=== PATIENT | female | born 1935 | race Caucasian/White ===

== ENCOUNTER → 2016-12-31 | Outpatient (CLI) | payer OTHER ==
[2016-08-31 16:04] VITALS: BP 113/55
[2016-12-31 08:26] LABS: BASOPHILS % (AUTO) 0.6 % (0.2-1.0); EOSINOPHILS # (AUTO) 0.1 x10^3/uL (0.0-0.2); EOSINOPHILS % (AUTO) 1.2 % (0.9-2.9); HEMATOCRIT 25.9 % (36.0-47.0); HEMOGLOBIN 8.1 g/dL (12.0-16.0); LYMPHOCYTES # (AUTO) 1.8 X10^3/uL (1.3-2.9); LYMPHOCYTES % (AUTO) 27.5 % (21.0-51.0); MEAN CORPUSCULAR HEMOGLOBIN 24.4 pg (27.0-34.0); MEAN CORPUSCULAR HGB CONC 31.4 g/dL (33.0-35.0); MEAN CORPUSCULAR VOLUME 77.7 fL (80.0-100.0); MEAN PLATELET VOLUME 7.9 fL (7.4-11.0); MONOCYTES # (AUTO) 0.5 x10^3/uL (0.3-0.8); NEUTROPHILS % (AUTO) 62.7 % (42.0-75.0); PLATELET COUNT 297 X10^3/uL (150.0-450.0); RED BLOOD COUNT 3.33 X10^6/uL (3.5-5.4); RED CELL DISTRIBUTION WIDTH 17.6 % (11.6-16.5); WHITE BLOOD COUNT 6.4 X10^3/uL (3.6-10.0)
[2016-12-31 08:39] LABS: ALANINE AMINOTRANSFERASE 17 Units/L (12-78); ALBUMIN 3.5 g/dL (3.4-5.0); ALKALINE PHOSPHATASE 77 Units/L (46-116); ASPARTATE AMINO TRANSFERASE 13 Units/L (15-37); BLOOD UREA NITROGEN 7 mg/dL (7-18); CALCIUM 8.4 mg/dL (8.5-10.1); CARBON DIOXIDE 26.2 mmol/L (21-32); CHLORIDE 105 mmol/L (98-107); CHOL/HDL RATIO 2.4 (0.0-5.0); CHOLESTEROL 106 mg/dL (0-200); GLUCOSE 92 mg/dL (65-99); HDL CHOLESTEROL 45 mg/dL (40-60); SODIUM 141 mmol/L (136-145); TOTAL PROTEIN 6.9 g/dL (6.4-8.2); TRIGLYCERIDES 57 mg/dL (0-150); eGFR BLACK RACES > 60 (>60); eGFR NON BLACK RACES > 60 (>60)
[2016-12-31 09:08] LABS: PLATELET MORPHOLOGY COMMENT NORMAL (NORMAL)
[2016-12-31 09:09] LABS: HYPOCHROMASIA SLIGHT
== END ==
LOC: LAB 07:55
PROVIDERS: ATTEND Obstetrics & Gynecology Obstetrics
DX: D50.0 Iron deficiency anemia secondary to blood loss (chronic) (principal); I10 Essential (primary) hypertension
CPT/HCPCS: 36415; 80053; 80061; 85025

== ENCOUNTER → 2017-01-11 | Outpatient (CLI) | payer OTHER ==
[2016-08-31 16:04] VITALS: BP 113/55
== END ==
LOC: LAB 08:41
PROVIDERS: ATTEND Obstetrics & Gynecology Obstetrics
DX: D50.0 Iron deficiency anemia secondary to blood loss (chronic) (principal); Z79.899 Other long term (current) drug therapy
CPT/HCPCS: 36415; 82607; 82728; 82746; 83540; 84466

== ENCOUNTER 2017-07-19 12:35 | Inpatient (IN) | payer OTHER ==
[2017-07-19 12:44] VITALS: BMI 23.8
--- NOTE | 2017-07-19 12:49 | DR.GENAD ---
HPI - PCP Primary Care Physician: Dr Martell - Complaint/Symptoms Chief Complaint Doctors Comments: Patient presents with complaint of SOB but denies a history of cardiopulmonary disease. She denies fever, vomiting or diarrhea. She has an appointment with her primary care today at 1500 but her sinus was bothering her so she came to the ED for evaluation. Her vital signs PMH - PMH Past Medical History: Anemia, Dyslipidemia, Hypertension Past Surgical History: Yes Surgical History: Appendectomy, Hysterectomy, Ortho Surgery - Family History Family Medical History: Cancer, Hypertension - Social History Do you use any recreational Drugs:: No ROS - Review of Systems Constitutional: Weakness Eyes: No Symptoms Reported, Eye Pain ENTM: No Symptoms Reported Respiratoy: No Symptoms Reported Cardiovascular: No Symptoms Reported Gastrointestinal/Abdominal: No Symptoms Reported, Other (?GI bleed) Genitourinary: No Symptoms Reported Neurological: No Symptoms Reported Musculoskeletal: No Symptoms Reported Integumentary: Other (pale) Hematologic/Lymphatic: No Symptoms Reported Endocrine: No Symptoms Reported Psychiatric: No Symptoms Reported All Other Systems: Reviewed and Negative PE - Vital Signs Vitals: Temperature 98.6 F Pulse Rate 86 Respiratory Rate 16 Blood Pressure [Left Arm] 156/63 Blood Pressure [Right Arm] 113/55 Blood Pressure 133/63 O2 Sat by Pulse Oximetry 100 - General Limitations: No Limitations General Appearance: Alert, In No Apparent Distress - Head Head Exam: Normal Inspection, Atraumatic - Eyes Eye exam: Normal Appearance, PERRL, EOMI - ENT ENT Exam: Normal Exam, Normal Oropharynx External Ear Exam: Normal External Inspection TM/Canal Exam: Bilateral Normal Nose Exam: Normal Nose Exam Mouth Exam: Normal Inspection Throat Exam: Normal Inspection - Neck Neck Exam: Normal Inspection, Full ROM - Chest Chest Inspection: Normal Inspection, Symmetric Chest Wall Rise - Respiratory Respiratory Exam: Normal Lung Sounds Bilat, Accessory Muscle Use Respiratory Exam: Bilateral Rhonchi - Cardiovascular Cardiovascular Exam: Regular Rate, Normal Rhythm - Abdominal Exam Abdominal Exam: Normal Inspection Abdominal Tenderness: negative: RUQ, RLQ, LUQ, LLQ, Epigastrium, Suprapubic, Diffuse, Mild, Moderate, Severe, Other - Extremities Extremities Exam: Normal Inspection, Full ROM - Back Back Exam: Normal Inspection, Full ROM - Neurologic Neurological Exam: Alert, Oriented X3, CN II-XII Intact - Psychiatric Psychiatric Exam: Normal Affect, Normal Mood - Skin Skin Exam: Warm, Dry, Intact Course - Consultation Called: 15:15 (Dr Martell agreed to admit for transfusion with consult) ROR - Labs Reviewed Result Diagrams: 07/19/17 13:13 07/19/17 13:13 Laboratory: WBC 8.9 X10^3/uL (3.6-10.0) 07/19/17 13:13 RBC 2.63 X10^6/uL (3.5-5.4) L 07/19/17 13:13 Hgb 4.7 g/dL (12.0-16.0) L* 07/19/17 13:13 Hct 16.1 % (36.0-47.0) L* 07/19/17 13:13 MCV 61.3 fL (80.0-100.0) L 07/19/17 13:13 MCH 17.8 pg (27.0-34.0) L 07/19/17 13:13 MCHC 29.0 g/dL (33.0-35.0) L 07/19/17 13:13 RDW 21.6 % (11.6-16.5) H 07/19/17 13:13 Plt Count 286 X10^3/uL (150.0-450.0) 07/19/17 13:13 Plt Count Comment Adequate (ADEQUATE) 07/19/17 13:13 MPV 8.7 fL (7.4-11.0) 07/19/17 13:13 Neut % 73.0 % (42.0-75.0) 07/19/17 13:13 Lymph % 17.8 % (21.0-51.0) L 07/19/17 13:13 [place] % 8.5 % (0.0-13.0) 07/19/17 13:13 Eos % 0.1 % (0.9-2.9) L 07/19/17 13:13 Baso % 0.6 % (0.2-1.0) 07/19/17 13:13 Neut # 6.5 x10^3/uL (2.2-4.8) H 07/19/17 13:13 Lymph # 1.6 X10^3/uL (1.3-2.9) 07/19/17 13:13 [place] # 0.8 x10^3/uL (0.3-0.8) 07/19/17 13:13 Eos # 0.0 x10^3/uL (0.0-0.2) 07/19/17 13:13 Baso # 0.1 X10^3/uL (0.0-0.1) 07/19/17 13:13 Absolute Nucleated RBC 1.0 /100WBC 07/19/17 13:13 Total Counted 100 07/19/17 13:13 Neutrophils % (Manual) 86 % (39-76) H 07/19/17 13:13 Lymphocytes % (Manual) 12 % (13-43) L 07/19/17 13:13 Monocytes % (Manual) 2 % (4-9) L 07/19/17 13:13 Plt Morphology Comment Normal (NORMAL) 07/19/17 13:13 RBC Morphology Abnormal (NORMAL) A 07/19/17 13:13 Hypochromasia 3+ A 07/19/17 13:13 Anisocytosis 1+ A 07/19/17 13:13 Microcytosis 2+ A 07/19/17 13:13 Sodium 135 mmol/L (136-145) L 07/19/17 13:13 Corrected Sodium TNP 07/19/17 13:13 Potassium 3.2 mmol/L (3.5-5.1) L 07/19/17 13:13 Chloride 100 mmol/L (98-107) 07/19/17 13:13 Carbon Dioxide 22.7 mmol/L (21-32) 07/19/17 13:13 BUN 11 mg/dL (7-18) 07/19/17 13:13 Creatinine 0.70 mg/dL (0.55-1.02) 07/19/17 13:13 Est GFR (MDRD) Af Amer > 60 (>60) 07/19/17 13:13 Est GFR (MDRD) Non-Af > 60 (>60) 07/19/17 13:13 Glucose 104 mg/dL (65-99) H 07/19/17 13:13 Calcium 8.6 mg/dL (8.5-10.1) 07/19/17 13:13 Corrected Calcium 9.2 mg/dL (8.5-10.1) 07/19/17 13:13 Total Bilirubin 0.60 mg/dL (0.2-1.0) 07/19/17 13:13 AST 12 Units/L (15-37) L 07/19/17 13:13 ALT 8 Units/L (12-78) L 07/19/17 13:13 Alkaline Phosphatase 72 Units/L (46-116) 07/19/17 13:13 C-Reactive Protein 13.20 mg/L (0-3.0) H 07/19/17 13:13 Total Protein 6.5 g/dL (6.4-8.2) 07/19/17 13:13 Albumin 3.2 g/dL (3.4-5.0) L 07/19/17 13:13 Globulin 3.3 g/dL (2.5-4.5) 07/19/17 13:13 Albumin/Globulin Ratio 1.0 Ratio (1.1-2.1) L 07/19/17 13:13 - XRAY XRAY Interpreted by: Radiologist (Chest: interstitial infiltrates in the bases with patchy infiltrate) - Diagnosis Discharge Problem: Anemia Qualifiers: Anemia type: unspecified type Qualified Code(s): D64.9 - Anemia, unspecified - Discharge Plan Condition: Stable - Follow ups/Referrals Follow ups/Referrals: IRINA MARTELL [Primary Care Provider] - 3 days - Instructions
[2017-07-19 13:23] LABS: BASOPHILS # (AUTO) 0.1 X10^3/uL (0.0-0.1); EOSINOPHILS % (AUTO) 0.1 % (0.9-2.9); MEAN PLATELET VOLUME 8.7 fL (7.4-11.0); NEUTROPHILS # (AUTO) 6.5 x10^3/uL (2.2-4.8)
[2017-07-19 13:38] LABS: ALANINE AMINOTRANSFERASE 8 Units/L (12-78); ALBUMIN 3.2 g/dL (3.4-5.0); ALKALINE PHOSPHATASE 72 Units/L (46-116); ASPARTATE AMINO TRANSFERASE 12 Units/L (15-37); BLOOD UREA NITROGEN 11 mg/dL (7-18); CALCIUM 8.6 mg/dL (8.5-10.1); CARBON DIOXIDE 22.7 mmol/L (21-32); CHLORIDE 100 mmol/L (98-107); COR CA(FOR HYPOALB) 9.2 mg/dL (8.5-10.1); SODIUM 135 mmol/L (136-145); TOTAL PROTEIN 6.5 g/dL (6.4-8.2); eGFR BLACK RACES > 60 (>60); eGFR NON BLACK RACES > 60 (>60)
[2017-07-19 13:57] LABS: BASOPHILS % (AUTO) 0.6 % (0.2-1.0); LYMPHOCYTES # (AUTO) 1.6 X10^3/uL (1.3-2.9); LYMPHOCYTES % (AUTO) 17.8 % (21.0-51.0); MEAN CORPUSCULAR HEMOGLOBIN 17.8 pg (27.0-34.0); MEAN CORPUSCULAR VOLUME 61.3 fL (80.0-100.0); MONOCYTES # (AUTO) 0.8 x10^3/uL (0.3-0.8); MONOCYTES % (AUTO) 8.5 % (0.0-13.0); PLATELET COUNT 286 X10^3/uL (150.0-450.0); RED BLOOD COUNT 2.63 X10^6/uL (3.5-5.4); RED CELL DISTRIBUTION WIDTH 21.6 % (11.6-16.5); WHITE BLOOD COUNT 8.9 X10^3/uL (3.6-10.0)
[2017-07-19 14:00] LABS: HEMOGLOBIN 4.7 g/dL (12.0-16.0)
--- NOTE | 2017-07-19 14:01 | RAD ---
HISTORY: Shortness of breath Study: Single-view of the chest Comparison: None Findings: The patient is rotated. The cardiac silhouette is unremarkable. Interstitial changes are seen withi n both lungs. Patchy infiltrate demonstrated within the lower lobes bilaterally. Hilar prominence is demonstrated bilaterally well and may be further evaluated on follow-up exam. The aortic knob is part ially calcified. There are questionable small bilateral pleural effusions. IMPRESSION: 1. Interstitial changes with patchy bibasilar infiltrate. Small bilateral pleural effusions cannot b e excluded. Reported By:
[2017-07-19 14:02] LABS: HEMATOCRIT 16.1 % (36.0-47.0)
[2017-07-19 14:09] LABS: PLATELET MORPHOLOGY COMMENT NORMAL (NORMAL)
[2017-07-19 14:10] LABS: ANISOCYTOSIS 1+; HYPOCHROMASIA 3+; MICROCYTOSIS 2+
[2017-07-19] MEDS ORDERED: K-LYTE EFFERVESCENT PO ONE (14:43)
[2017-07-19] MEDS ORDERED: NS 500 ML IV 500 ML IV ONE (15:26)
[2017-07-19] MEDS ORDERED: ZOFRAN INJ 4 MG VIAL IVP PRN (15:34)
[2017-07-19] MEDS ORDERED: NS 250 ML IV 250 ML IV ONE ×3 (16:27→21:44)
[2017-07-19] MEDS ORDERED: K-LYTE EFFERVESCENT ONE (16:27)
[2017-07-19] MEDS ORDERED: SALINE 3% 15 ML NEB TX ONE (18:04)
[2017-07-19] MEDS ORDERED: SALINE 3% 15 ML NEB TX NEB ONE (18:08)
[2017-07-19] MEDS: DUONEB 0.5 MG/3 MG NEB SCH (21:22)
[2017-07-20] MEDS: DUONEB 0.5 MG/3 MG NEB SCH ×6 (00:09→20:23)
[2017-07-20] MEDS ORDERED: NS 250 ML IV 250 ML IV ONE (01:37)
[2017-07-20] MEDS: NS 1000 ML 1,000 ML IV SCH ×4 (05:28→23:36)
[2017-07-20 07:06] LABS: BASOPHILS # (AUTO) 0.1 X10^3/uL (0.0-0.1); BASOPHILS % (AUTO) 0.6 % (0.2-1.0); EOSINOPHILS % (AUTO) 0.1 % (0.9-2.9); HEMATOCRIT 27.3 % (36.0-47.0); HEMOGLOBIN 8.5 g/dL (12.0-16.0); LYMPHOCYTES % (AUTO) 6.4 % (21.0-51.0); MEAN CORPUSCULAR HEMOGLOBIN 22.2 pg (27.0-34.0); MEAN CORPUSCULAR HGB CONC 31.2 g/dL (33.0-35.0); MEAN CORPUSCULAR VOLUME 71.2 fL (80.0-100.0); MEAN PLATELET VOLUME 9.1 fL (7.4-11.0); MONOCYTES # (AUTO) 1.1 x10^3/uL (0.3-0.8); MONOCYTES % (AUTO) 6.8 % (0.0-13.0); NEUTROPHILS # (AUTO) 13.3 x10^3/uL (2.2-4.8); NEUTROPHILS % (AUTO) 86.1 % (42.0-75.0); PLATELET COUNT 256 X10^3/uL (150.0-450.0); RED BLOOD COUNT 3.83 X10^6/uL (3.5-5.4); RED CELL DISTRIBUTION WIDTH 29.4 % (11.6-16.5); WHITE BLOOD COUNT 15.4 X10^3/uL (3.6-10.0)
[2017-07-20 07:17] LABS: ALANINE AMINOTRANSFERASE 9 Units/L (12-78); ALBUMIN 2.9 g/dL (3.4-5.0); ALKALINE PHOSPHATASE 71 Units/L (46-116); ASPARTATE AMINO TRANSFERASE 13 Units/L (15-37); BLOOD UREA NITROGEN 8 mg/dL (7-18); CALCIUM 8.2 mg/dL (8.5-10.1); CARBON DIOXIDE 20.1 mmol/L (21-32); CHLORIDE 101 mmol/L (98-107); COR CA(FOR HYPOALB) 9.1 mg/dL (8.5-10.1); COR NA(FOR HYPERGLY) 135 mmol/L (136-145); CREATININE 0.72 mg/dL (0.55-1.02); SODIUM 134 mmol/L (136-145); eGFR BLACK RACES > 60 (>60); eGFR NON BLACK RACES > 60 (>60)
[2017-07-20 07:32] LABS: ANISOCYTOSIS 3+; HYPOCHROMASIA 1+; PLATELET MORPHOLOGY COMMENT NORMAL (NORMAL)
[2017-07-20] MEDS ORDERED: PHARMACY CONSULT - DOSE _____ XX SCH (10:00)
[2017-07-20] MEDS ORDERED: DEXFERRUM or INFED 25 MG in NS 100 ML IV 100 ML IV NR (11:00)
[2017-07-20] MEDS ORDERED: DEXFERRUM or INFED 975 MG in NS 500 ML IV 500 ML IV NR (12:30)
--- NOTE | 2017-07-20 13:21 | CT ---
Examination: CT of the sinuses. Clinical history: Frontal headache. Technique: Multiple axial images were obtained to evaluate the sinuses. Coronal reformatted images we re obtained. Dose reduction techniques including automated exposure control (AEC) and adjustment of m A and kV were utilized. Comparison: None available. Findings: There is mild mucosal thickening seen associated with the ethmoid air cells bilaterally, with minor m ucosal thickening seen associated with the maxillary sinuses bilaterally and mild mucosal thickening seen associated with an atrophic left frontal sinus. The remainder of the paranasal sinuses are essen tially clear. The nasal septum is deviated to the right. The ostiomeatal units are patent bilaterally. Atherosclerotic calcifications are seen associated with the internal carotid arteries bilaterally and the vertebral arteries bilaterally. No additional bony or soft tissue abnormality is noted. Impression: 1. Inflammatory sinus disease, as described above. Reported By:
--- NOTE | 2017-07-20 13:24 | RAD ---
Chest, two views Indication: Shortness of breath Comparison: 07/19/2017 Findings: The heart is borderline enlarged. There is moderate pulmonary vascular congestion and incre asing bilateral interstitial opacities, most compatible with interstitial edema. Small bilateral pleu ral effusions have slightly increased since yesterday's exam. No pneumothorax is identified. No acute osseous abnormality seen. Impression: Cardiomegaly with moderate interstitial edema and increasing small bilateral effusions, collectively suggestive for congestive failure. Superimposed pneumonia is difficult to exclude and clinical correl ation is recommended. Reported By:
[2017-07-20] MEDS ORDERED: DIPRIVAN VIAL 20 ML ONE (14:06)
[2017-07-20] MEDS ORDERED: MIRALAX POWDER (255 GM BTL) PO NR (15:00)
[2017-07-20] MEDS ORDERED: LASIX ONE (15:22)
[2017-07-20] MEDS ORDERED: LEVAQUIN PREMIX IV 500 MG 500 MG/100 ML BAG IV SCH (16:00)
[2017-07-20] MEDS ORDERED: LASIX IVP NR (16:00)
[2017-07-20 18:04] LABS: HEMATOCRIT 29.6 % (36.0-47.0); HEMOGLOBIN 9.4 g/dL (12.0-16.0)
[2017-07-20] MEDS: PROTONIX INJ 40 MG VIAL IVP SCH (20:25)
[2017-07-21] MEDS: DUONEB 0.5 MG/3 MG NEB SCH ×3 (00:58→08:57)
[2017-07-21 05:46] LABS: BASOPHILS # (AUTO) 0.1 X10^3/uL (0.0-0.1); BASOPHILS % (AUTO) 0.8 % (0.2-1.0); EOSINOPHILS % (AUTO) 0.1 % (0.9-2.9); HEMATOCRIT 26.3 % (36.0-47.0); HEMOGLOBIN 8.5 g/dL (12.0-16.0); LYMPHOCYTES # (AUTO) 1.1 X10^3/uL (1.3-2.9); LYMPHOCYTES % (AUTO) 7.7 % (21.0-51.0); MEAN CORPUSCULAR HGB CONC 32.2 g/dL (33.0-35.0); MEAN CORPUSCULAR VOLUME 71.3 fL (80.0-100.0); MEAN PLATELET VOLUME 9.2 fL (7.4-11.0); MONOCYTES # (AUTO) 1.1 x10^3/uL (0.3-0.8); MONOCYTES % (AUTO) 7.4 % (0.0-13.0); NEUTROPHILS # (AUTO) 12.3 x10^3/uL (2.2-4.8); PLATELET COUNT 239 X10^3/uL (150.0-450.0); RED BLOOD COUNT 3.69 X10^6/uL (3.5-5.4); RED CELL DISTRIBUTION WIDTH 29.9 % (11.6-16.5); WHITE BLOOD COUNT 14.7 X10^3/uL (3.6-10.0)
[2017-07-21 06:04] LABS: ALANINE AMINOTRANSFERASE 8 Units/L (12-78); ALBUMIN 2.6 g/dL (3.4-5.0); ALKALINE PHOSPHATASE 65 Units/L (46-116); BLOOD UREA NITROGEN 7 mg/dL (7-18); CALCIUM 8.4 mg/dL (8.5-10.1); CARBON DIOXIDE 24.3 mmol/L (21-32); CHLORIDE 100 mmol/L (98-107); COR CA(FOR HYPOALB) 9.5 mg/dL (8.5-10.1); COR NA(FOR HYPERGLY) 136 mmol/L (136-145); CREATININE 0.52 mg/dL (0.55-1.02); SODIUM 135 mmol/L (136-145); TOTAL PROTEIN 5.9 g/dL (6.4-8.2); eGFR BLACK RACES > 60 (>60); eGFR NON BLACK RACES > 60 (>60)
[2017-07-21] MEDS ORDERED: MAGNESIUM SULFATE 1 GM/100 mL PREMIX 1 GM/100 ML BAG IV PRN (06:46)
[2017-07-21] MEDS ORDERED: MAG-OX TAB PO PRN (06:46)
[2017-07-21] MEDS ORDERED: K-LYTE EFFERVESCENT PO PRN (06:46)
[2017-07-21 06:47] LABS: ANISOCYTOSIS 3+; HYPOCHROMASIA 2+; MICROCYTOSIS 1+; PLATELET MORPHOLOGY COMMENT NORMAL (NORMAL); POIKILOCYTOSIS SLIGHT
[2017-07-21 06:53] LABS: ASPARTATE AMINO TRANSFERASE 19 Units/L (15-37)
[2017-07-21] MEDS: K-RIDER 10 MEQ/NS 100 ML 10 MEQ/100 ML BAG IV PRN ×3 (07:05→09:24)
[2017-07-21] MEDS: PROTONIX INJ 40 MG VIAL IVP SCH (09:24)
[2017-07-21] MEDS ORDERED: PROTONIX TAB 40 MG PO ONE (09:36)
[2017-07-21] MEDS ORDERED: K-DUR TAB 20 MEQ PO ONE (09:36)
--- NOTE | 2017-07-21 09:36 | DR.CONSULT ---
Consult - Consultation for Day of: Date: 07/20/17 - Chief Complaint Chief Complaint: Patient referred for anemia - Allergies Allergies/Adverse Reactions: Allergies Allergy/AdvReac Type Severity Reaction Status Date / Time codeine Allergy Verified 07/19/17 14:06 - History of Present Illness History of Present Illness: Patient is a 81yo female who was referred for anemia. Patient presented with a Hgb of 4.7 and recieved 3 units of PRBC which brought her hgb up to 8.5. Patient denies, dysphagia, nausea, vomiting, abdominal pain, dyspepsia, diarrhea, constipation, melena and hematochezia. Patients last EGD was 05/10/2014 which showed 2 large gastric ulcers, hiatal hernia and distal esophagitis. Last colonoscopy was 05/17/2014 which showed left sided diverticulosis and internal hemrrhoids. - Past Medical History Past Medical History: Anemia, Dyslipidemia, Hypertension - Past Surgical History Surgical History: Appendectomy, Hysterectomy, Ortho Surgery - Family History Family Medical History: Cancer, Hypertension - Social History Does patient currently use any type of tobacco product: No Have you used tobacco products in the last 12 months: No Type of Tobacco Use: None Does any household member use tobacco: No Alcohol Use: None Drug Use: None - Medications Home Medications: Gabapentin [NEURONTIN CAP 300 mg *] 300 mg PO DAILY 07/19/17 [History Confirmed 07/19/17] Gabapentin [NEURONTIN CAP 300 mg *] 600 mg PO HS 07/19/17 [History Confirmed ] - Review of Systems Constitutional: Weakness Eyes: No Symptoms Reported ENT: No Symptoms Reported Respiratory: No Symptoms Reported Cardiovascular: No Symptoms Reported Gastrointestinal: No Symptoms Reported. denies: Nausea, Vomiting, Abdominal Pain, Diarrhea, Constipation, Melena, Hematochezia Genitourinary: No Symptoms Reported Musculoskeletal: No Symptoms Reported Skin: No Symptoms Reported Neurological: Weakness - Physical Exam Vital Signs: Temperature 98.4 F Pulse Rate [Apical] 87 Pulse Rate [Left Brachial] 90 Pulse Rate 93 Respiratory Rate 20 Blood Pressure [Left Arm] 124/60 Blood Pressure [Right Arm] 138/65 Blood Pressure 133/63 O2 Sat by Pulse Oximetry 95 Oriented: Normal Eyes: Normal Ear: Normal Nose: Normal Throat: Normal Respiratory: Clear Throughout Cardiovascular: Normal Auscultation: Bowel Sounds: Normal Palpation: Normal, Other (no distention, no organmegaly, no pulsitile mass) Tenderness: Normal (no tenderness) Skin: Normal Musculoskeletal: Normal Psychiatric: Normal Mood Description: Calm Affect: Normal Speech Pattern: Clear - Plan Plan: Assessment. 1. Anemia r/o gastric ulcer, gastric adenocarcinoma. 2. GERD. Plan. 1. Monitor Hgb transfuse as needed, EGD. 2. Start protonix 40mg IV Q12
[2017-07-21] MEDS ORDERED: LEVAQUIN TAB 500 MG PO SCH (10:00)
[2017-07-21 10:40] VITALS: BP 113/57
[2017-07-21] MEDS ORDERED: PROTONIX INJ 40 MG VIAL IVP SCH (11:00)
[2017-07-21] MEDS ORDERED: MIRALAX POWDER (255 GM BTL) PO NR (15:00)
[2017-07-21] MEDS ORDERED: DULCOLAX TAB EC 5 MG PO ONE (18:00)
== END 2017-07-21 11:05 | disposition home health service (06) | DRG 812 ==
LOC: ER 12:42 → ICU 16:58
PROVIDERS: ADMIT Obstetrics & Gynecology Obstetrics; ATTEND Obstetrics & Gynecology Obstetrics
PROC: 30233N1 Transfusion of Nonautologous Red Blood Cells into Peripheral Vein, Percutaneous Approach (ICD-10-PCS; 2017-07-19)
PROC: 30233N1 Transfusion of Nonautologous Red Blood Cells into Peripheral Vein, Percutaneous Approach (ICD-10-PCS; 2017-07-19)
PROC: 30233N1 Transfusion of Nonautologous Red Blood Cells into Peripheral Vein, Percutaneous Approach (ICD-10-PCS; 2017-07-20)
PROC: 0DB68ZX Excision of Stomach, Via Natural or Artificial Opening Endoscopic, Diagnostic (ICD-10-PCS; principal; 2017-07-20 13:00)
DX: D50.0 Iron deficiency anemia secondary to blood loss (chronic) (principal); R06.02 Shortness of breath; K52.89 Other specified noninfective gastroenteritis and colitis; K59.09 Other constipation; E78.2 Mixed hyperlipidemia; I10 Essential (primary) hypertension; K25.9 Gastric ulcer, unspecified as acute or chronic, without hemorrhage or perforation; K44.9 Diaphragmatic hernia without obstruction or gangrene; K20.8 Other esophagitis
CPT/HCPCS: 36415; 36430; 70486; 71010; 71020; 80053; 83735; 84132; 85014; 85018; 85025; 86140; 86850; 86900; 86901; 86922; 87070; 87205; 94640; 96365; 99100; 99284; A4216; A4222; C9113; P9016; A4217; J1750; J1940; J1956; J3480; J3490; J7620

== ENCOUNTER → 2017-12-29 | Outpatient (CLI) | payer OTHER ==
[2017-12-29 08:36] LABS: BASOPHILS # (AUTO) 0.1 X10^3/uL (0.0-0.1); BASOPHILS % (AUTO) 1.2 % (0.2-1.0); EOSINOPHILS # (AUTO) 0.1 x10^3/uL (0.0-0.2); EOSINOPHILS % (AUTO) 0.9 % (0.9-2.9); HEMATOCRIT 25.7 % (36.0-47.0); HEMOGLOBIN 8.4 g/dL (12.0-16.0); LYMPHOCYTES # (AUTO) 2.1 X10^3/uL (1.3-2.9); LYMPHOCYTES % (AUTO) 34.3 % (21.0-51.0); MEAN CORPUSCULAR HEMOGLOBIN 26.6 pg (27.0-34.0); MEAN CORPUSCULAR HGB CONC 32.7 g/dL (33.0-35.0); MEAN CORPUSCULAR VOLUME 81.3 fL (80.0-100.0); MEAN PLATELET VOLUME 8.1 fL (7.4-11.0); MONOCYTES # (AUTO) 0.5 x10^3/uL (0.3-0.8); MONOCYTES % (AUTO) 8.7 % (0.0-13.0); NEUTROPHILS # (AUTO) 3.3 x10^3/uL (2.2-4.8); NEUTROPHILS % (AUTO) 54.9 % (42.0-75.0); PLATELET COUNT 330 X10^3/uL (150.0-450.0); RED BLOOD COUNT 3.17 X10^6/uL (3.5-5.4); RED CELL DISTRIBUTION WIDTH 16.3 % (11.6-16.5); RETICULOCYTE % 3.22 % (0.8-2.2); WHITE BLOOD COUNT 6.1 X10^3/uL (3.6-10.0)
== END ==
LOC: LAB 07:53
PROVIDERS: ATTEND Obstetrics & Gynecology Obstetrics
DX: D50.0 Iron deficiency anemia secondary to blood loss (chronic) (principal)
CPT/HCPCS: 36415; 82728; 85025; 85045

== ENCOUNTER 2018-07-26 15:26 | Inpatient (IN) ==
[2018-07-26 16:26] VITALS: BMI 22.5
[2018-07-26 16:52] LABS: BASOPHILS % (AUTO) 0.6 % (0.2-1.0); EOSINOPHILS % (AUTO) 0.4 % (0.9-2.9); LYMPHOCYTES # (AUTO) 1.9 X10^3/uL (1.3-2.9); LYMPHOCYTES % (AUTO) 30.7 % (21.0-51.0); MEAN CORPUSCULAR HEMOGLOBIN 20.7 pg (27.0-34.0); MEAN CORPUSCULAR HGB CONC 30.1 g/dL (33.0-35.0); MEAN CORPUSCULAR VOLUME 68.7 fL (80.0-100.0); MEAN PLATELET VOLUME 8.3 fL (7.4-11.0); MONOCYTES # (AUTO) 0.6 x10^3/uL (0.3-0.8); NEUTROPHILS # (AUTO) 3.8 x10^3/uL (2.2-4.8); NEUTROPHILS % (AUTO) 59.3 % (42.0-75.0); PLATELET COUNT 297 X10^3/uL (150.0-450.0); RED BLOOD COUNT 2.62 X10^6/uL (3.5-5.4); RED CELL DISTRIBUTION WIDTH 21.9 % (11.6-16.5); WHITE BLOOD COUNT 6.4 X10^3/uL (3.6-10.0)
[2018-07-26 16:59] LABS: HEMOGLOBIN 5.4 g/dL (12.0-16.0)
[2018-07-26 17:05] LABS: ANISOCYTOSIS 1+; HYPOCHROMASIA 2+; MICROCYTOSIS 1+; PLATELET MORPHOLOGY COMMENT NORMAL (NORMAL)
[2018-07-26 17:09] LABS: ALANINE AMINOTRANSFERASE 12 Units/L (12-78); ALBUMIN 3.7 g/dL (3.4-5.0); ALKALINE PHOSPHATASE 66 Units/L (46-116); ASPARTATE AMINO TRANSFERASE 8 Units/L (15-37); BLOOD UREA NITROGEN 13 mg/dL (7-18); CALCIUM 8.5 mg/dL (8.5-10.1); CARBON DIOXIDE 23.4 mmol/L (21-32); CHLORIDE 98 mmol/L (98-107); CREATININE 0.73 mg/dL (0.55-1.02); SODIUM 132 mmol/L (136-145); eGFR NON BLACK RACES > 60 (>60)
[2018-07-26] MEDS ORDERED: NS 500 ML IV 500 ML IV ONE ×2 (17:30→19:24)
[2018-07-26 17:33] LABS: IRON 11 ug/dL (50-175)
[2018-07-27 02:04] LABS: HEMATOCRIT 24.6 % (36.0-47.0); HEMOGLOBIN 7.9 g/dL (12.0-16.0)
[2018-07-27 06:12] LABS: ALANINE AMINOTRANSFERASE 9 Units/L (12-78); ALBUMIN 3.2 g/dL (3.4-5.0); ALKALINE PHOSPHATASE 59 Units/L (46-116); ASPARTATE AMINO TRANSFERASE 14 Units/L (15-37); BLOOD UREA NITROGEN 7 mg/dL (7-18); CALCIUM 8.1 mg/dL (8.5-10.1); CARBON DIOXIDE 23.4 mmol/L (21-32); CHLORIDE 105 mmol/L (98-107); COR CA(FOR HYPOALB) 8.7 mg/dL (8.5-10.1); CREATININE 0.55 mg/dL (0.55-1.02); SODIUM 135 mmol/L (136-145); TOTAL PROTEIN 6.2 g/dL (6.4-8.2); eGFR NON BLACK RACES > 60 (>60)
[2018-07-27 06:17] LABS: BASOPHILS # (AUTO) 0.1 X10^3/uL (0.0-0.1); BASOPHILS % (AUTO) 1.2 % (0.2-1.0); EOSINOPHILS # (AUTO) 0.1 x10^3/uL (0.0-0.2); HEMATOCRIT 24.5 % (36.0-47.0); LYMPHOCYTES # (AUTO) 1.5 X10^3/uL (1.3-2.9); LYMPHOCYTES % (AUTO) 26.5 % (21.0-51.0); MEAN CORPUSCULAR HEMOGLOBIN 24.1 pg (27.0-34.0); MEAN CORPUSCULAR HGB CONC 32.6 g/dL (33.0-35.0); MEAN CORPUSCULAR VOLUME 73.9 fL (80.0-100.0); MEAN PLATELET VOLUME 8.7 fL (7.4-11.0); MONOCYTES # (AUTO) 0.6 x10^3/uL (0.3-0.8); MONOCYTES % (AUTO) 9.7 % (0.0-13.0); NEUTROPHILS # (AUTO) 3.5 x10^3/uL (2.2-4.8); NEUTROPHILS % (AUTO) 61.6 % (42.0-75.0); PLATELET COUNT 243 X10^3/uL (150.0-450.0); RED BLOOD COUNT 3.32 X10^6/uL (3.5-5.4); RED CELL DISTRIBUTION WIDTH 23.7 % (11.6-16.5); WHITE BLOOD COUNT 5.8 X10^3/uL (3.6-10.0)
[2018-07-27 06:41] LABS: ANISOCYTOSIS 2+; HYPOCHROMASIA 1+; PLATELET MORPHOLOGY COMMENT NORMAL (NORMAL)
[2018-07-27] MEDS ORDERED: NS 250 ML IV 250 ML IV ONE ×2 (10:04→16:43)
[2018-07-27] MEDS: D5 1/2 NS 1000 ML 1,000 ML IV SCH (10:42)
[2018-07-27] MEDS ORDERED: PROTONIX INJ 40 MG VIAL IVP ONE (10:48)
[2018-07-27] MEDS ORDERED: NS 1000 ML 1,000 ML ONE (13:04)
[2018-07-27] MEDS ORDERED: DIPRIVAN VIAL 20 ML ONE (13:13)
[2018-07-27] MEDS: NULYTELY or GO-LYTELY PO SCH (15:41)
[2018-07-27 21:21] LABS: HEMATOCRIT 30.5 % (36.0-47.0)
[2018-07-27 21:25] LABS: HEMOGLOBIN 10.1 g/dL (12.0-16.0)
[2018-07-28] MEDS: D5 1/2 NS 1000 ML 1,000 ML IV SCH ×2 (00:36→03:48)
[2018-07-28 05:06] LABS: BASOPHILS # (AUTO) 0.1 X10^3/uL (0.0-0.1); BASOPHILS % (AUTO) 0.9 % (0.2-1.0); EOSINOPHILS # (AUTO) 0.1 x10^3/uL (0.0-0.2); EOSINOPHILS % (AUTO) 1.9 % (0.9-2.9); HEMATOCRIT 30.2 % (36.0-47.0); HEMOGLOBIN 9.9 g/dL (12.0-16.0); LYMPHOCYTES # (AUTO) 1.8 X10^3/uL (1.3-2.9); LYMPHOCYTES % (AUTO) 27.8 % (21.0-51.0); MEAN CORPUSCULAR HEMOGLOBIN 25.3 pg (27.0-34.0); MEAN CORPUSCULAR HGB CONC 32.6 g/dL (33.0-35.0); MEAN CORPUSCULAR VOLUME 77.6 fL (80.0-100.0); MEAN PLATELET VOLUME 8.6 fL (7.4-11.0); MONOCYTES # (AUTO) 0.8 x10^3/uL (0.3-0.8); NEUTROPHILS # (AUTO) 3.8 x10^3/uL (2.2-4.8); NEUTROPHILS % (AUTO) 57.4 % (42.0-75.0); PLATELET COUNT 208 X10^3/uL (150.0-450.0); RED CELL DISTRIBUTION WIDTH 22.3 % (11.6-16.5); WHITE BLOOD COUNT 6.5 X10^3/uL (3.6-10.0)
[2018-07-28 05:19] LABS: ALANINE AMINOTRANSFERASE 12 Units/L (12-78); ALBUMIN 2.9 g/dL (3.4-5.0); ALKALINE PHOSPHATASE 61 Units/L (46-116); ASPARTATE AMINO TRANSFERASE 9 Units/L (15-37); BLOOD UREA NITROGEN 9 mg/dL (7-18); CALCIUM 7.7 mg/dL (8.5-10.1); CHLORIDE 107 mmol/L (98-107); COR CA(FOR HYPOALB) 8.6 mg/dL (8.5-10.1); COR NA(FOR HYPERGLY) 138 mmol/L (136-145); CREATININE 0.62 mg/dL (0.55-1.02); SODIUM 138 mmol/L (136-145); TOTAL PROTEIN 5.8 g/dL (6.4-8.2); eGFR NON BLACK RACES > 60 (>60)
[2018-07-28] MEDS ORDERED: MICRO K EXTEN CAP 10 MEQ PO PRN (05:30)
[2018-07-28] MEDS ORDERED: MAGNESIUM SULFATE 1 GRAM/100 mL PREMIX 1 GM/100 ML BAG IV PRN (05:30)
[2018-07-28] MEDS ORDERED: POTASSIUM CHL 40 MEQ/NS 0.45% 500 ML IV PRN (05:30)
[2018-07-28] MEDS ORDERED: KLOR-CON PO PRN (05:30)
[2018-07-28] MEDS ORDERED: POTASSIUM CHLORIDE LIQ 20 MEQ UDC PO PRN (05:30)
[2018-07-28] MEDS ORDERED: K-RIDER 10 MEQ/NS 100 ML 10 MEQ/100 ML BAG IV PRN (05:30)
[2018-07-28] MEDS ORDERED: K-DUR TAB 20 MEQ PO PRN (05:30)
[2018-07-28] MEDS ORDERED: POTASSIUM CHL 60 MEQ/NS 0.45% 500 ML IV PRN (05:30)
[2018-07-28 06:40] LABS: PLATELET MORPHOLOGY COMMENT NORMAL (NORMAL)
[2018-07-28 06:41] LABS: ANISOCYTOSIS 2+
[2018-07-28] MEDS ORDERED: VENOFER IV ONE (09:25)
[2018-07-28] MEDS: NS 1000 ML 1,000 ML IV SCH ×2 (10:06→18:03)
[2018-07-28] MEDS: SINGULAIR TAB 10 MG PO SCH (10:06)
[2018-07-28] MEDS: NULYTELY or GO-LYTELY PO SCH (14:00)
[2018-07-28 15:47] LABS: HEMATOCRIT 34.2 % (36.0-47.0); HEMOGLOBIN 11.1 g/dL (12.0-16.0)
[2018-07-28] MEDS: ZESTRIL TAB 40 MG PO SCH (16:39)
[2018-07-28] MEDS ORDERED: NS 100 ML IV 100 ML with VENOFER 400 MG IV ONE ×2 (17:00)
[2018-07-28] MEDS ORDERED: NS 100 ML IV 100 ML with VENOFER 400 MG IV NR ×2 (17:00)
[2018-07-28] MEDS ORDERED: NS 100 ML IV 100 ML IV ONE (17:35)
[2018-07-28] MEDS ORDERED: ZOFRAN INJ 4 MG VIAL IVP PRN (21:14)
[2018-07-28] MEDS: PROTONIX TAB 40 MG PO SCH (21:27)
[2018-07-29] MEDS: NS 1000 ML 1,000 ML IV SCH ×3 (05:13→10:31)
[2018-07-29 06:11] LABS: BASOPHILS # (AUTO) 0.1 X10^3/uL (0.0-0.1); BASOPHILS % (AUTO) 0.6 % (0.2-1.0); EOSINOPHILS # (AUTO) 0.1 x10^3/uL (0.0-0.2); EOSINOPHILS % (AUTO) 0.5 % (0.9-2.9); HEMATOCRIT 32.8 % (36.0-47.0); HEMOGLOBIN 10.7 g/dL (12.0-16.0); LYMPHOCYTES % (AUTO) 19.5 % (21.0-51.0); MEAN CORPUSCULAR HEMOGLOBIN 25.3 pg (27.0-34.0); MEAN CORPUSCULAR HGB CONC 32.5 g/dL (33.0-35.0); MEAN CORPUSCULAR VOLUME 77.9 fL (80.0-100.0); MEAN PLATELET VOLUME 8.6 fL (7.4-11.0); MONOCYTES # (AUTO) 0.5 x10^3/uL (0.3-0.8); MONOCYTES % (AUTO) 4.9 % (0.0-13.0); NEUTROPHILS # (AUTO) 7.6 x10^3/uL (2.2-4.8); NEUTROPHILS % (AUTO) 74.5 % (42.0-75.0); PLATELET COUNT 235 X10^3/uL (150.0-450.0); RED BLOOD COUNT 4.21 X10^6/uL (3.5-5.4); WHITE BLOOD COUNT 10.2 X10^3/uL (3.6-10.0)
[2018-07-29 06:16] LABS: ALANINE AMINOTRANSFERASE 9 Units/L (12-78); ALBUMIN 2.7 g/dL (3.4-5.0); ALKALINE PHOSPHATASE 55 Units/L (46-116); ASPARTATE AMINO TRANSFERASE 18 Units/L (15-37); BLOOD UREA NITROGEN 6 mg/dL (7-18); CALCIUM 7.7 mg/dL (8.5-10.1); CARBON DIOXIDE 22.6 mmol/L (21-32); CHLORIDE 109 mmol/L (98-107); COR CA(FOR HYPOALB) 8.7 mg/dL (8.5-10.1); CREATININE 0.48 mg/dL (0.55-1.02); SODIUM 140 mmol/L (136-145); TOTAL PROTEIN 5.3 g/dL (6.4-8.2); eGFR NON BLACK RACES > 60 (>60)
[2018-07-29 06:45] LABS: ANISOCYTOSIS 2+; HYPOCHROMASIA SLIGHT; PLATELET MORPHOLOGY COMMENT NORMAL (NORMAL)
[2018-07-29] MEDS ORDERED: DIPRIVAN VIAL 20 ML ONE (08:28)
[2018-07-29] MEDS ORDERED: ROBINUL ONE (08:41)
[2018-07-29] MEDS: ZESTRIL TAB 40 MG PO SCH (10:40)
[2018-07-29] MEDS: PROTONIX TAB 40 MG PO SCH (10:40)
[2018-07-29] MEDS: SINGULAIR TAB 10 MG PO SCH (10:40)
[2018-07-29 17:56] VITALS: BP 146/70
== END 2018-07-29 10:50 | disposition home or self-care (01) | DRG 812 ==
LOC: ICU 15:27
PROVIDERS: ADMIT Obstetrics & Gynecology Obstetrics; ATTEND Obstetrics & Gynecology Obstetrics
DX: R53.1 Weakness; K21.9 Gastro-esophageal reflux disease without esophagitis; M13.89 Other specified arthritis, multiple sites; K44.9 Diaphragmatic hernia without obstruction or gangrene; I10 Essential (primary) hypertension; Z87.11 Personal history of peptic ulcer disease; K64.8 Other hemorrhoids; D50.0 Iron deficiency anemia secondary to blood loss (chronic); K57.90 Diverticulosis of intestine, part unspecified, without perforation or abscess without bleeding; R42 Dizziness and giddiness; R53.83 Other fatigue
CPT/HCPCS: 36415; 36430; 80053; 82270; 82378; 82607; 82728; 82746; 83540; 83735; 84132; 84466; 85014; 85018; 85025; 86850; 86900; 86901; 86922; 88305; 88341; 99100; A4217; A4222; C9113; P9016; J1756; J2405; J2704; J3490; J7030; J7040; J7050; S5010

== ENCOUNTER 2018-10-25 12:14 | Observation (INO) ==
[2018-10-25] MEDS ORDERED: PHARMACY CONSULT - DOSE _____ XX SCH (13:00)
[2018-10-25 13:08] LABS: BASOPHILS % (AUTO) 0.6 % (0.2-1.0); EOSINOPHILS % (AUTO) 0.7 % (0.9-2.9); LYMPHOCYTES # (AUTO) 2.1 X10^3/uL (1.3-2.9); MEAN CORPUSCULAR HEMOGLOBIN 24.1 pg (27.0-34.0); MEAN CORPUSCULAR HGB CONC 31.4 g/dL (33.0-35.0); MEAN CORPUSCULAR VOLUME 76.7 fL (80.0-100.0); MEAN PLATELET VOLUME 8.3 fL (7.4-11.0); MONOCYTES # (AUTO) 0.5 x10^3/uL (0.3-0.8); MONOCYTES % (AUTO) 7.9 % (0.0-13.0); NEUTROPHILS # (AUTO) 3.8 x10^3/uL (2.2-4.8); NEUTROPHILS % (AUTO) 58.8 % (42.0-75.0); PLATELET COUNT 287 X10^3/uL (150.0-450.0); RED BLOOD COUNT 2.45 X10^6/uL (3.5-5.4); RED CELL DISTRIBUTION WIDTH 20.9 % (11.6-16.5); WHITE BLOOD COUNT 6.5 X10^3/uL (3.6-10.0)
[2018-10-25 13:16] LABS: HEMATOCRIT 18.8 % (36.0-47.0); HEMOGLOBIN 5.9 g/dL (12.0-16.0)
[2018-10-25 13:23] LABS: ALANINE AMINOTRANSFERASE 13 Units/L (12-78); ALBUMIN 3.7 g/dL (3.4-5.0); ALKALINE PHOSPHATASE 61 Units/L (46-116); ASPARTATE AMINO TRANSFERASE 10 Units/L (15-37); BLOOD UREA NITROGEN 10 mg/dL (7-18); CALCIUM 8.8 mg/dL (8.5-10.1); CARBON DIOXIDE 23.5 mmol/L (21-32); CHLORIDE 101 mmol/L (98-107); CREATININE 0.72 mg/dL (0.55-1.02); SODIUM 135 mmol/L (136-145); TOTAL PROTEIN 6.9 g/dL (6.4-8.2); eGFR NON BLACK RACES > 60 (>60)
[2018-10-25 13:25] LABS: ANISOCYTOSIS 1+; HYPOCHROMASIA 2+; PLATELET MORPHOLOGY COMMENT NORMAL (NORMAL)
[2018-10-25 13:48] LABS: IRON 14 ug/dL (50-175)
[2018-10-25] MEDS: NS 1000 ML 1,000 ML IV SCH (13:50)
[2018-10-25] MEDS ORDERED: NS 500 ML IV 500 ML IV ONE (14:15)
[2018-10-25 15:47] VITALS: BMI 20.7
[2018-10-25] MEDS ORDERED: DEXFERRUM or INFED 25 MG in NS 100 ML IV 100 ML IV ONE (20:00)
[2018-10-25] MEDS ORDERED: DEXFERRUM or INFED 975 MG in NS 500 ML IV 500 ML IV ONE (22:00)
[2018-10-26 03:10] LABS: BASOPHILS # (AUTO) 0.1 X10^3/uL (0.0-0.1); BASOPHILS % (AUTO) 0.8 % (0.2-1.0); EOSINOPHILS # (AUTO) 0.1 x10^3/uL (0.0-0.2); EOSINOPHILS % (AUTO) 1.4 % (0.9-2.9); HEMATOCRIT 26.5 % (36.0-47.0); LYMPHOCYTES # (AUTO) 1.8 X10^3/uL (1.3-2.9); LYMPHOCYTES % (AUTO) 23.6 % (21.0-51.0); MEAN CORPUSCULAR HEMOGLOBIN 27.1 pg (27.0-34.0); MEAN CORPUSCULAR HGB CONC 33.4 g/dL (33.0-35.0); MEAN CORPUSCULAR VOLUME 81.1 fL (80.0-100.0); MEAN PLATELET VOLUME 8.3 fL (7.4-11.0); MONOCYTES # (AUTO) 0.7 x10^3/uL (0.3-0.8); MONOCYTES % (AUTO) 8.9 % (0.0-13.0); NEUTROPHILS # (AUTO) 5.1 x10^3/uL (2.2-4.8); NEUTROPHILS % (AUTO) 65.3 % (42.0-75.0); PLATELET COUNT 205 X10^3/uL (150.0-450.0); RED BLOOD COUNT 3.26 X10^6/uL (3.5-5.4); RED CELL DISTRIBUTION WIDTH 18.6 % (11.6-16.5); WHITE BLOOD COUNT 7.8 X10^3/uL (3.6-10.0)
[2018-10-26 03:13] LABS: HEMOGLOBIN 8.8 g/dL (12.0-16.0)
[2018-10-26] MEDS: PROTONIX TAB 40 MG PO SCH ×2 (09:48→20:34)
[2018-10-26] MEDS: ZESTRIL TAB 40 MG PO SCH (09:48)
[2018-10-26 10:32] LABS: HEMATOCRIT 30.1 % (36.0-47.0); HEMOGLOBIN 9.8 g/dL (12.0-16.0)
[2018-10-26] MEDS ORDERED: NS 500 ML IV 500 ML IV ONE (11:28)
[2018-10-26] MEDS: NS 1000 ML 1,000 ML IV SCH (13:06)
[2018-10-26] MEDS ORDERED: TOPROL XL PO ONE (17:53)
[2018-10-26] MEDS: TOPROL XL PO SCH (18:12)
[2018-10-26 19:57] LABS: HEMATOCRIT 34.7 % (36.0-47.0); HEMOGLOBIN 11.4 g/dL (12.0-16.0)
[2018-10-26 21:50] LABS: HEMATOCRIT 34.2 % (36.0-47.0); HEMOGLOBIN 11.5 g/dL (12.0-16.0)
[2018-10-27 05:52] LABS: BASOPHILS # (AUTO) 0.1 X10^3/uL (0.0-0.1); BASOPHILS % (AUTO) 0.8 % (0.2-1.0); EOSINOPHILS # (AUTO) 0.1 x10^3/uL (0.0-0.2); EOSINOPHILS % (AUTO) 1.5 % (0.9-2.9); HEMATOCRIT 34.7 % (36.0-47.0); HEMOGLOBIN 11.6 g/dL (12.0-16.0); LYMPHOCYTES # (AUTO) 1.6 X10^3/uL (1.3-2.9); LYMPHOCYTES % (AUTO) 21.1 % (21.0-51.0); MEAN CORPUSCULAR HEMOGLOBIN 27.5 pg (27.0-34.0); MEAN CORPUSCULAR HGB CONC 33.3 g/dL (33.0-35.0); MEAN CORPUSCULAR VOLUME 82.8 fL (80.0-100.0); MEAN PLATELET VOLUME 8.4 fL (7.4-11.0); MONOCYTES # (AUTO) 0.7 x10^3/uL (0.3-0.8); MONOCYTES % (AUTO) 9.2 % (0.0-13.0); NEUTROPHILS # (AUTO) 5.2 x10^3/uL (2.2-4.8); NEUTROPHILS % (AUTO) 67.4 % (42.0-75.0); PLATELET COUNT 213 X10^3/uL (150.0-450.0); RED BLOOD COUNT 4.19 X10^6/uL (3.5-5.4); RED CELL DISTRIBUTION WIDTH 18.6 % (11.6-16.5); WHITE BLOOD COUNT 7.7 X10^3/uL (3.6-10.0)
[2018-10-27 06:02] LABS: ALANINE AMINOTRANSFERASE 9 Units/L (12-78); ALBUMIN 3.2 g/dL (3.4-5.0); ALKALINE PHOSPHATASE 62 Units/L (46-116); BLOOD UREA NITROGEN 7 mg/dL (7-18); CALCIUM 8.7 mg/dL (8.5-10.1); CARBON DIOXIDE 19.6 mmol/L (21-32); CHLORIDE 106 mmol/L (98-107); COR CA(FOR HYPOALB) 9.3 mg/dL (8.5-10.1); CREATININE 0.59 mg/dL (0.55-1.02); SODIUM 139 mmol/L (136-145); TOTAL PROTEIN 6.2 g/dL (6.4-8.2); eGFR NON BLACK RACES > 60 (>60)
[2018-10-27 06:14] LABS: ASPARTATE AMINO TRANSFERASE 12 Units/L (15-37)
[2018-10-27] MEDS ORDERED: K-RIDER 10 MEQ/NS 100 ML 10 MEQ/100 ML BAG IV PRN (06:29)
[2018-10-27] MEDS ORDERED: POTASSIUM CHLORIDE LIQ 20 MEQ UDC PO PRN (06:29)
[2018-10-27] MEDS ORDERED: POTASSIUM CHL 60 MEQ/NS 0.45% 500 ML IV PRN (06:29)
[2018-10-27] MEDS ORDERED: POTASSIUM CHL 40 MEQ/NS 0.45% 500 ML IV PRN (06:29)
[2018-10-27] MEDS ORDERED: MICRO K EXTEN CAP 10 MEQ PO PRN (06:29)
[2018-10-27] MEDS ORDERED: KLOR-CON PO PRN (06:29)
[2018-10-27] MEDS ORDERED: K-DUR TAB 20 MEQ PO PRN (06:29)
[2018-10-27] MEDS: PROTONIX TAB 40 MG PO SCH (08:10)
[2018-10-27] MEDS: TOPROL XL PO SCH (08:10)
[2018-10-27] MEDS: ZESTRIL TAB 40 MG PO SCH (08:11)
[2018-10-27 09:18] VITALS: BP 128/62
== END 2018-10-27 11:00 | disposition home or self-care (01) ==
LOC: INTOOBSV 12:22 → ICU 12:22
PROVIDERS: ADMIT Obstetrics & Gynecology Obstetrics; ATTEND Obstetrics & Gynecology Obstetrics
DX: D50.0 Iron deficiency anemia secondary to blood loss (chronic); K55.20 Angiodysplasia of colon without hemorrhage
CPT/HCPCS: 36415; 36430; 80053; 82607; 82728; 82746; 83540; 83735; 84466; 85014; 85018; 85025; 86850; 86900; 86901; 86922; 96367; 96374; A4222; P9016; G0378; J1750; J3480; J7030; J7040; J7050

== ENCOUNTER 2019-10-15 14:50 | Observation (INO) ==
[2019-10-15 15:00] VITALS: BMI 21.4
[2019-10-15 17:05] LABS: ALANINE AMINOTRANSFERASE 16 Units/L (12-78); ALBUMIN 3.4 g/dL (3.4-5.0); ALKALINE PHOSPHATASE 102 Units/L (46-116); ASPARTATE AMINO TRANSFERASE 13 Units/L (15-37); BASOPHILS # (AUTO) 0.1 X10^3/uL (0.0-0.1); BASOPHILS % (AUTO) 1.2 % (0.2-1.0); BLOOD UREA NITROGEN 12 mg/dL (7-18); CALCIUM 8.4 mg/dL (8.5-10.1); CARBON DIOXIDE 26.5 mmol/L (21-32); CHLORIDE 105 mmol/L (98-107); CREATININE 0.62 mg/dL (0.55-1.02); EOSINOPHILS % (AUTO) 0.4 % (0.9-2.9); HEMATOCRIT 23.1 % (36.0-47.0); HEMOGLOBIN 7.3 g/dL (12.0-16.0); LYMPHOCYTES # (AUTO) 1.5 X10^3/uL (1.3-2.9); LYMPHOCYTES % (AUTO) 17.5 % (21.0-51.0); MEAN CORPUSCULAR HEMOGLOBIN 29.1 pg (27.0-34.0); MEAN CORPUSCULAR HGB CONC 31.4 g/dL (33.0-35.0); MEAN CORPUSCULAR VOLUME 92.5 fL (80.0-100.0); MEAN PLATELET VOLUME 8.1 fL (7.4-11.0); MONOCYTES # (AUTO) 0.8 x10^3/uL (0.3-0.8); MONOCYTES % (AUTO) 9.4 % (0.0-13.0); NEUTROPHILS # (AUTO) 6.1 x10^3/uL (2.2-4.8); NEUTROPHILS % (AUTO) 71.5 % (42.0-75.0); PLATELET COUNT 301 X10^3/uL (150.0-450.0); SODIUM 140 mmol/L (136-145); TOTAL PROTEIN 6.6 g/dL (6.4-8.2); WHITE BLOOD COUNT 8.6 X10^3/uL (3.6-10.0); eGFR NON BLACK RACES > 60 (>60)
[2019-10-15 17:14] LABS: PLATELET MORPHOLOGY COMMENT NORMAL (NORMAL)
--- NOTE | 2019-10-15 17:56 | DR.DIZZY ---
HPI Time seen Time Seen by Provider: 10/15/19 17:55 PCP Primary Care Physician: MARTELL Complaint Chief Complaint Doctor Comments: WEAKNESS, DIZZINESS AND SOB TIMES Chief Complaint:: DAUGHTER STATES SHE THINKS PT. HEMOBLOGIN IS LOW AGAIN. PT. C/O SHORTNESS OF BREATH AND DIZZINESS. Nurses Notes Reviewed Nurses Notes Review: Yes Source History Provided: Patient and Family Member Mode of Arrival Mode of Arrival: Ambulatory Timing Onset of Chief Complaint: 10/14/19 Came on: Suddenly Duration Duration: Constant Duration: Days Location of Weakness Weakness Location: Generalized Context Onset: With light exertion History of: Anemia Stroke Symptoms: Dizziness Severity Severity: Normal activity level Modifying factors Worsens: Other (EXERTION.) Associated signs and symptoms Associated Signs and Symptoms: Weak and Other (ANEMIA.) Other history Other history: HISTORY ANEMIA. PMH PMH Past Medical History: Yes Past Medical History: Anemia, Dyslipidemia and Hypertension Past Surgical History: Yes Surgical History: Appendectomy and Hysterectomy Family History History of Family Medical Conditions: Yes Family Medical History: Cancer and Hypertension Social History Does patient currently use any type of tobacco product: No Have you used tobacco products in the last 12 months: No Type of Tobacco Use: None Does any household member use tobacco: No Alcohol Use: None Do you use any recreational Drugs:: No Lives With: Family Lives Where: Home infectious screening In the last 2 months have you had wt loss of >10#?: NO Have you had fever, night sweats or hemotysis?: No Have you traveled outside the country in the last 6 months?: No Isolation: Standard ROS Review of Systems Constitutional: See HPI, Weakness and Fatigue; negative Fever Eyes: See HPI and Blurred Vision ENTM: No Symptoms Reported and See HPI Respiratoy: See HPI and Short of Breath; negative Moist Cough Cardiovascular: No Symptoms Reported and See HPI; negative Chest Pain, Edema and Palpitations Gastrointestinal/Abdominal: No Symptoms Reported and See HPI; negative Abdominal Pain, Diarrhea, Nausea and Vomiting Genitourinary: No Symptoms Reported and See HPI; negative Dysuria, Frequency and Hematuria Neurological: See HPI, Weakness and Dizziness; negative Headache Musculoskeletal: No Symptoms Reported and See HPI Integumentary: No Symptoms Reported and See HPI Hematologic/Lymphatic: No Symptoms Reported and See HPI; negative Easy Bleeding, Easy Bruising and Swollen Glands Endocrine: No Symptoms Reported and See HPI Psychiatric: No Symptoms Reported and See HPI All Other Systems: Reviewed and Negative PE Vital Signs Vitals: Temperature 98.2 F Pulse Rate [Left Brachial] 72 Pulse Rate 87 Respiratory Rate 20 Blood Pressure [Left Arm] 125/59 Blood Pressure 109/50 O2 Sat by Pulse Oximetry 98 General Limitations: No Limitations General Appearance: Alert and In No Apparent Distress Head Head Exam: Normal Inspection Eyes Eye exam: Normal Appearance and PERRL; negative Scleral Icterus and Conjunctival Injection (PALE CONJUNCTIVITIS.) Pupils: Regular, Round: Bilateral Sclera/Conjunctival: Normal Inspection: Bilateral ENT ENT Exam: Normal Exam, Normal Oropharynx, Normal External Ear Exam and TM's Normal Bilaterally Neck Neck Exam: Normal Inspection and Trachea Midline; negative Tenderness and Lymphadenopathy Chest Chest Inspection: Normal Inspection and Symmetric Chest Wall Rise; negative Tenderness Respiratory Respiratory Exam: Normal Lung Sounds Bilat; negative Accessory Muscle Use, Chest Wall Tenderness and Respiratory Distress Respiratory Exam: Bilateral: Clear to Auscultation Cardiovascular Cardiovascular Exam: Regular Rate, Normal Rhythm and Normal Heart Sounds; negative Systolic Murmur and Diastolic Murmur Abdominal Exam Abdominal Exam: Normal Inspection, Normal Bowel Sounds and Soft; negative Ten derness Rectal Rectal Exam: Deferred Extremeties Extremities Exam: Normal Inspection and Full ROM Back Back Exam: Normal Inspection and Full ROM Neurologic Neurological Exam: Alert, Oriented X3 and CN II-XII Intact; negative Motor Sensory Deficit Patient Oriented To: Person, Place and Time Speech: Fluid Speech Cranial Nerve Exam: EOM Function (II, III, IV, ): Normal, Facial Sensation (V): Normal, Facial Palsy (VII): Normal, Gag reflex (XI): Normal, Spinal Accessory Function (XI): Normal and Tongue Deviation: Normal Motor Strength - LUE: 5/5 Motor Strength - RUE: 5/5 Motor Strength - LLE: 5/5 Motor Strength - RLE: 5/5 Upper Motor Neuron Exam: Babinski Sign: Normal Psychiatric Psychiatric Exam: Normal Affect and Normal Mood Skin Skin Exam: Warm, Dry, Intact and Normal Color MDM Differential Diagnosis Differential Diagnosis: Anemia, Dehydration and Electrolyte disorder COURSE Treatment Treatment: SEE ORDERS. Consultation Consultation Comments: DISCUSSED PATIENT WITH DR. MARTELL. HE WILL ADMIT PATIENT. ROR Labs Reviewed Laboratory Results Reviewed?: Yes Result Diagrams: 10/16/19 04:59 10/16/19 04:59 Laboratory: WBC 8.6 X10^3/uL (3.6-10.0) 10/15/19 16:45 RBC 2.50 X10^6/uL (3.5-5.4) L 10/15/19 16:45 Hgb 7.3 g/dL (12.0-16.0) L 10/15/19 16:45 Hct 23.1 % (36.0-47.0) L 10/15/19 16:45 MCV 92.5 fL (80.0-100.0) 10/15/19 16:45 MCH 29.1 pg (27.0-34.0) 10/15/19 16:45 MCHC 31.4 g/dL (33.0-35.0) L 10/15/19 16:45 RDW 16.0 % (11.6-16.5) 10/15/19 16:45 Plt Count 301 X10^3/uL (150.0-450.0) 10/15/19 16:45 Plt Count Comment Adequate (ADEQUATE) 10/15/19 16:45 MPV 8.1 fL (7.4-11.0) 10/15/19 16:45 Neut % (Auto) 71.5 % (42.0-75.0) 10/15/19 16:45 Lymph % (Auto) 17.5 % (21.0-51.0) L 10/15/19 16:45 [place] % (Auto) 9.4 % (0.0-13.0) 10/15/19 16:45 Eos % (Auto) 0.4 % (0.9-2.9) L 10/15/19 16:45 Baso % (Auto) 1.2 % (0.2-1.0) H 10/15/19 16:45 Neut # (Auto) 6.1 x10^3/uL (2.2-4.8) H 10/15/19 16:45 Lymph # (Auto) 1.5 X10^3/uL (1.3-2.9) 10/15/19 16:45 [place] # (Auto) 0.8 x10^3/uL (0.3-0.8) 10/15/19 16:45 Eos # (Auto) 0.0 x10^3/uL (0.0-0.2) 10/15/19 16:45 Baso # (Auto) 0.1 X10^3/uL (0.0-0.1) 10/15/19 16:45 Absolute Nucleated RBC 0.1 /100WBC 10/15/19 16:45 Plt Morphology Comment Normal (NORMAL) 10/15/19 16:45 RBC Morphology Normal (NORMAL) 10/15/19 16:45 Sodium 140 mmol/L (136-145) 10/15/19 16:45 Corrected Sodium TNP 10/15/19 16:45 Potassium 3.9 mmol/L (3.5-5.1) 10/15/19 16:45 Chloride 105 mmol/L (98-107) 10/15/19 16:45 Carbon Dioxide 26.5 mmol/L (21-32) 10/15/19 16:45 BUN 12 mg/dL (7-18) 10/15/19 16:45 Creatinine 0.62 mg/dL (0.55-1.02) 10/15/19 16:45 Est GFR (MDRD) Af Amer > 60 (>60) 10/15/19 16:45 Est GFR (MDRD) Non-Af > 60 (>60) 10/15/19 16:45 Glucose 102 mg/dL (65-99) H 10/15/19 16:45 Calcium 8.4 mg/dL (8.5-10.1) L 10/15/19 16:45 Corrected Calcium TNP 10/15/19 16:45 Total Bilirubin 0.10 mg/dL (0.2-1.0) L 10/15/19 16:45 AST 13 Units/L (15-37) L 10/15/19 16:45 ALT 16 Units/L (12-78) 10/15/19 16:45 Alkaline Phosphatase 102 Units/L (46-116) 10/15/19 16:45 Total Protein 6.6 g/dL (6.4-8.2) 10/15/19 16:45 Albumin 3.4 g/dL (3.4-5.0) 10/15/19 16:45 Globulin 3.2 g/dL (2.5-4.5) 10/15/19 16:45 Albumin/Globulin Ratio 1.1 Ratio (1.1-2.1) 10/15/19 16:45 Opioid Opioid Risk Tool Age (Spike box if 16-45): No History of Preadolescent Sexual Abuse: No Total: 0 Total Score Risk Category: Low Risk Copyright: Adam COTA predicting aberrant behaviors Diagnosis Discharge Problem: Generalized muscle weakness Anemia Qualifiers: Anemia type: unspecified type Qualified Code(s): D64.9 - Anemia, unspecified Dyspnea Qualifiers: Dyspnea type: shortness of breath Qualified Code(s): R06.02 - Shortness of breath
[2019-10-15 20:48] LABS: CKMB % 6.7 % (<4); CREATINE KINASE 15 Units/L (26-192); CREATINE KINASE MB < 1.0 ng/mL (0-4.0); TROPONIN I < 0.02 ng/mL (0-1.5)
[2019-10-15] MEDS ORDERED: NS 250 ML IV 250 ML IV ONE (21:57)
[2019-10-15] MEDS: NS 1000 ML 1,000 ML IV SCH (22:05)
[2019-10-16 02:43] LABS: BILIRUBIN,URINE NEGATIVE (NEGATIVE); BLOOD/HEMOGLOBIN,URINE NEGATIVE (NEGATIVE); GLUCOSE, URINE NEGATIVE (NEGATIVE); KETONES,URINE NEGATIVE (NEGATIVE); LEUKOCYTE ESTERASE ,URINE 1+ (NEGATIVE); NITRITES,URINE NEGATIVE (NEGATIVE); PH,URINE 6.5 (5.0 - 8.0); PROTEIN,URINE NEGATIVE (NEGATIVE); UROBILINOGEN,URINE NORMAL (NORMAL)
[2019-10-16 03:15] LABS: APPEARANCE,URINE SLIGHTLY HAZY (CLEAR); BACTERIA,URINE TRACE /HPF (NEGATIVE); COLOR,URINE YELLOW (YELLOW); RBC,URINE NONE SEEN /HPF (0-3); SQUAMOUS EPITHELIAL CELL,UR FEW /HPF (NEGATIVE)
[2019-10-16 05:27] LABS: BASOPHILS # (AUTO) 0.1 X10^3/uL (0.0-0.1); BASOPHILS % (AUTO) 1.2 % (0.2-1.0); EOSINOPHILS # (AUTO) 0.1 x10^3/uL (0.0-0.2); EOSINOPHILS % (AUTO) 1.3 % (0.9-2.9); LYMPHOCYTES # (AUTO) 1.4 X10^3/uL (1.3-2.9); LYMPHOCYTES % (AUTO) 22.6 % (21.0-51.0); MEAN CORPUSCULAR HEMOGLOBIN 29.8 pg (27.0-34.0); MEAN CORPUSCULAR HGB CONC 33.2 g/dL (33.0-35.0); MEAN CORPUSCULAR VOLUME 89.7 fL (80.0-100.0); MONOCYTES # (AUTO) 0.6 x10^3/uL (0.3-0.8); MONOCYTES % (AUTO) 9.6 % (0.0-13.0); NEUTROPHILS # (AUTO) 4.2 x10^3/uL (2.2-4.8); NEUTROPHILS % (AUTO) 65.3 % (42.0-75.0); PLATELET COUNT 234 X10^3/uL (150.0-450.0); RED BLOOD COUNT 3.01 X10^6/uL (3.5-5.4); RED CELL DISTRIBUTION WIDTH 15.6 % (11.6-16.5); WHITE BLOOD COUNT 6.4 X10^3/uL (3.6-10.0)
[2019-10-16 05:46] LABS: ALANINE AMINOTRANSFERASE 13 Units/L (12-78); ALKALINE PHOSPHATASE 87 Units/L (46-116); ASPARTATE AMINO TRANSFERASE 13 Units/L (15-37); BLOOD UREA NITROGEN 10 mg/dL (7-18); CALCIUM 8.1 mg/dL (8.5-10.1); CARBON DIOXIDE 25.6 mmol/L (21-32); CHLORIDE 107 mmol/L (98-107); CHOL/HDL RATIO 2.7 (0.0-5.0); CHOLESTEROL 144 mg/dL (0-200); COR CA(FOR HYPOALB) 8.9 mg/dL (8.5-10.1); CREATININE 0.51 mg/dL (0.55-1.02); HDL CHOLESTEROL 53 mg/dL (40-60); MAGNESIUM 2.2 mg/dL (1.7-2.9); SODIUM 139 mmol/L (136-145); TOTAL PROTEIN 5.6 g/dL (6.4-8.2); TRIGLYCERIDES 47 mg/dL (0-150); eGFR NON BLACK RACES > 60 (>60)
[2019-10-16 06:03] LABS: CKMB % 3.9 % (<4); CREATINE KINASE 26 Units/L (26-192); CREATINE KINASE MB < 1.0 ng/mL (0-4.0); TROPONIN I < 0.02 ng/mL (0-1.5)
[2019-10-16] MEDS ORDERED: NS 100 ML IV 100 ML with VENOFER 400 MG IV NR ×2 (09:01)
[2019-10-16] MEDS ORDERED: NS 500 ML IV 500 ML IV ONE (10:16)
[2019-10-16 11:14] LABS: CKMB % 5.6 % (<4); CREATINE KINASE 18 Units/L (26-192); CREATINE KINASE MB < 1.0 ng/mL (0-4.0); TROPONIN I < 0.02 ng/mL (0-1.5)
[2019-10-16] MEDS: NS 1000 ML 1,000 ML IV SCH (11:26)
[2019-10-16 16:55] VITALS: BP 144/65
[2019-10-16 17:01] LABS: HEMATOCRIT 34.9 % (36.0-47.0); HEMOGLOBIN 11.7 g/dL (12.0-16.0)
== END 2019-10-16 19:05 | disposition home or self-care (01) ==
LOC: ER 14:53 → MED/SURG 19:37 → INTOOBSV 19:37 → MED/SURG 19:57
PROVIDERS: ADMIT Obstetrics & Gynecology Obstetrics; ATTEND Obstetrics & Gynecology Obstetrics
DX: R06.02 Shortness of breath; Z79.899 Other long term (current) drug therapy; R42 Dizziness and giddiness; D50.0 Iron deficiency anemia secondary to blood loss (chronic); M62.81 Muscle weakness (generalized); R26.89 Other abnormalities of gait and mobility; R94.31 Abnormal electrocardiogram [ECG] [EKG]; E78.49 Other hyperlipidemia; I10 Essential (primary) hypertension
CPT/HCPCS: 36415; 36430; 80053; 80061; 81001; 82550; 82553; 83735; 84484; 85014; 85018; 85025; 86850; 86900; 86901; 86922; 93005; 94760; 96365; 97162; 99284; A4222; G0378; J1756; J7030; J7040; J7050; P9016

== ENCOUNTER 2020-02-27 14:58 | Observation (INO) ==
[2020-02-27] MEDS ORDERED: NS 1000 ML 1,000 ML ONE (15:54)
[2020-02-27] MEDS: NS 1000 ML 1,000 ML IV SCH (16:05)
[2020-02-27 16:57] VITALS: BMI 20.2
[2020-02-27] MEDS ORDERED: NS 100 ML IV 100 ML with VENOFER 400 MG IV NR ×2 (17:00)
[2020-02-27 17:57] LABS: BASOPHILS # (AUTO) 0.2 X10^3/uL (0.0-0.1); BASOPHILS % (AUTO) 2.1 % (0.2-1.0); EOSINOPHILS % (AUTO) 0.4 % (0.9-2.9); LYMPHOCYTES # (AUTO) 2.1 X10^3/uL (1.3-2.9); LYMPHOCYTES % (AUTO) 24.5 % (21.0-51.0); MEAN CORPUSCULAR HEMOGLOBIN 23.1 pg (27.0-34.0); MEAN CORPUSCULAR HGB CONC 30.1 g/dL (33.0-35.0); MEAN CORPUSCULAR VOLUME 76.7 fL (80.0-100.0); MEAN PLATELET VOLUME 8.3 fL (7.4-11.0); MONOCYTES # (AUTO) 0.5 x10^3/uL (0.3-0.8); MONOCYTES % (AUTO) 5.7 % (0.0-13.0); NEUTROPHILS # (AUTO) 5.7 x10^3/uL (2.2-4.8); NEUTROPHILS % (AUTO) 67.3 % (42.0-75.0); PLATELET COUNT 210 X10^3/uL (150.0-450.0); RED BLOOD COUNT 2.17 X10^6/uL (3.5-5.4); RED CELL DISTRIBUTION WIDTH 20.1 % (11.6-16.5); WHITE BLOOD COUNT 8.5 X10^3/uL (3.6-10.0)
[2020-02-27 18:10] LABS: ALANINE AMINOTRANSFERASE 11 Units/L (12-78); ALBUMIN 3.2 g/dL (3.4-5.0); ALKALINE PHOSPHATASE 70 Units/L (46-116); ASPARTATE AMINO TRANSFERASE 10 Units/L (15-37); BLOOD UREA NITROGEN 14 mg/dL (7-18); CALCIUM 8.3 mg/dL (8.5-10.1); CARBON DIOXIDE 25.5 mmol/L (21-32); CHLORIDE 102 mmol/L (98-107); COR CA(FOR HYPOALB) 8.9 mg/dL (8.5-10.1); CREATININE 0.79 mg/dL (0.55-1.02); SODIUM 137 mmol/L (136-145); TOTAL PROTEIN 5.7 g/dL (6.4-8.2); eGFR NON BLACK RACES > 60 (>60)
[2020-02-27 18:18] LABS: HEMATOCRIT 16.6 % (36.0-47.0)
[2020-02-27 18:36] LABS: IRON 12 ug/dL (50-175)
[2020-02-27 18:53] LABS: BAND NEUTROPHILS % 6 % (0-10)
[2020-02-27 18:54] LABS: ANISOCYTOSIS 1+; HYPOCHROMASIA 1+; PLATELET MORPHOLOGY COMMENT NORMAL (NORMAL)
[2020-02-27] MEDS: TOPROL XL PO SCH (19:18)
[2020-02-27] MEDS: ZESTRIL TAB 20 MG PO SCH (19:19)
[2020-02-27] MEDS ORDERED: NS 250 ML IV 250 ML IV ONE (20:36)
[2020-02-27] MEDS: PRAVACHOL PO SCH (21:42)
[2020-02-27] MEDS: PROTONIX TAB 40 MG PO SCH (21:42)
[2020-02-27] MEDS: CYTOTEC PO SCH (21:42)
[2020-02-28] MEDS: NS 1000 ML 1,000 ML IV SCH ×2 (05:17→20:21)
[2020-02-28 06:13] LABS: HEMATOCRIT 26.9 % (36.0-47.0)
[2020-02-28 06:22] LABS: HEMOGLOBIN 8.7 g/dL (12.0-16.0)
[2020-02-28] MEDS ORDERED: ZESTRIL TAB 20 MG ONE (08:04)
[2020-02-28] MEDS: PROTONIX TAB 40 MG PO SCH ×2 (08:14→20:20)
[2020-02-28] MEDS: ZESTRIL TAB 20 MG PO SCH (08:15)
[2020-02-28] MEDS: TOPROL XL PO SCH (08:15)
[2020-02-28] MEDS: CYTOTEC PO SCH ×2 (08:15→20:21)
[2020-02-28] MEDS ORDERED: NS 100 ML IV 100 ML with VENOFER 400 MG IV SCH ×2 (09:00)
[2020-02-28] MEDS ORDERED: NS 100 ML IV 100 ML with VENOFER 400 MG IV ONE ×2 (09:00)
[2020-02-28] MEDS ORDERED: MIRALAX POWDER (255 GRAMS BTL) PO NR (14:00)
[2020-02-28] MEDS ORDERED: DULCOLAX TAB EC 5 MG PO ONE ×2 (15:00→21:00)
[2020-02-28] MEDS: PRAVACHOL PO SCH (20:20)
[2020-02-29 08:31] LABS: BASOPHILS # (AUTO) 0.3 X10^3/uL (0.0-0.1); BASOPHILS % (AUTO) 3.1 % (0.2-1.0); EOSINOPHILS # (AUTO) 0.2 x10^3/uL (0.0-0.2); EOSINOPHILS % (AUTO) 1.6 % (0.9-2.9); HEMATOCRIT 28.6 % (36.0-47.0); HEMOGLOBIN 9.2 g/dL (12.0-16.0); LYMPHOCYTES # (AUTO) 1.5 X10^3/uL (1.3-2.9); LYMPHOCYTES % (AUTO) 15.7 % (21.0-51.0); MEAN CORPUSCULAR HEMOGLOBIN 26.3 pg (27.0-34.0); MEAN CORPUSCULAR HGB CONC 32.1 g/dL (33.0-35.0); MEAN CORPUSCULAR VOLUME 81.9 fL (80.0-100.0); MEAN PLATELET VOLUME 8.4 fL (7.4-11.0); MONOCYTES # (AUTO) 0.7 x10^3/uL (0.3-0.8); MONOCYTES % (AUTO) 7.7 % (0.0-13.0); NEUTROPHILS # (AUTO) 6.8 x10^3/uL (2.2-4.8); NEUTROPHILS % (AUTO) 71.9 % (42.0-75.0); PLATELET COUNT 220 X10^3/uL (150.0-450.0); RED BLOOD COUNT 3.49 X10^6/uL (3.5-5.4); RED CELL DISTRIBUTION WIDTH 22.3 % (11.6-16.5); WHITE BLOOD COUNT 9.5 X10^3/uL (3.6-10.0)
[2020-02-29 08:32] LABS: ALANINE AMINOTRANSFERASE 10 Units/L (12-78); ALBUMIN 2.8 g/dL (3.4-5.0); ALKALINE PHOSPHATASE 64 Units/L (46-116); ASPARTATE AMINO TRANSFERASE 18 Units/L (15-37); BLOOD UREA NITROGEN 4 mg/dL (7-18); CALCIUM 8.2 mg/dL (8.5-10.1); CARBON DIOXIDE 23.9 mmol/L (21-32); CHLORIDE 105 mmol/L (98-107); COR CA(FOR HYPOALB) 9.2 mg/dL (8.5-10.1); CREATININE 0.61 mg/dL (0.55-1.02); SODIUM 137 mmol/L (136-145); TOTAL PROTEIN 5.5 g/dL (6.4-8.2); eGFR NON BLACK RACES > 60 (>60)
[2020-02-29 08:44] LABS: ANISOCYTOSIS 2+; HYPOCHROMASIA SLIGHT; PLATELET MORPHOLOGY COMMENT NORMAL (NORMAL)
[2020-02-29] MEDS ORDERED: ZESTRIL TAB 20 MG ONE (08:51)
[2020-02-29] MEDS: TOPROL XL PO SCH (09:38)
[2020-02-29] MEDS: ZESTRIL TAB 20 MG PO SCH (09:38)
--- NOTE | 2020-02-29 10:23 | RAD ---
HISTORYPREOP for colonoscopy.STUDYCHEST, 1 VIEWCOMPARISONFINDINGSThe trachea is midline. The cardiac silhouette is unremarkable . The lungs are clear without focal infiltrate but there hazy densities in both lung bases on this portable chest that are new compared to the last film February 03, 2019. Right greater than left pleural effusions are suspect. There is also mild vascular congestion that is more prominent will was present on February 03, 2019.. The bony thorax is unremarkable.IMPRESSIONChronic changes of COPD and fibrosis but in addition there are new right greater than left hazy densities consistent with pleural effusion that are new from the prior study February 03, 2019.Electronically signed by: RAHEL CHAN (Feb 29, 2020 10:22:01)
[2020-02-29] MEDS ORDERED: DIPRIVAN VIAL 20 ML ONE (12:29)
[2020-02-29] MEDS: PROTONIX TAB 40 MG PO SCH (13:43)
[2020-02-29] MEDS: CYTOTEC PO SCH (13:43)
[2020-02-29] MEDS: NS 1000 ML 1,000 ML IV SCH (13:44)
[2020-02-29 14:11] VITALS: BP 99/50
== END 2020-02-29 15:35 | disposition home or self-care (01) ==
LOC: MED/SURG → INTOOBSV 15:08 → OBSVTOIN 15:08
PROVIDERS: ADMIT Obstetrics & Gynecology Obstetrics; ATTEND Obstetrics & Gynecology Obstetrics
DX: Z01.818 Encounter for other preprocedural examination; K64.1 Second degree hemorrhoids; R94.31 Abnormal electrocardiogram [ECG] [EKG]; D50.0 Iron deficiency anemia secondary to blood loss (chronic); K57.30 Diverticulosis of large intestine without perforation or abscess without bleeding; Z11.59 Encounter for screening for other viral diseases; E78.2 Mixed hyperlipidemia; I10 Essential (primary) hypertension; K55.20 Angiodysplasia of colon without hemorrhage
CPT/HCPCS: 36415; 36430; 71010; 71045; 80053; 82607; 82728; 82746; 83540; 84466; 85014; 85018; 85025; 86850; 86900; 86901; 86922; 87635; 93005; A4222; G0378; J1756; J7030; J7050; P9016; S0191

== ENCOUNTER 2020-07-02 19:32 | Observation (INO) ==
--- NOTE | 2020-07-02 19:49 | DR.EXTPAIN ---
HPI Time seen Time Seen by Provider: 07/02/20 19:41 Complaint/Symptoms Chief Complaint Doctor Comments: COMPLAINT OF TAILBONE PAIN AFTER FALL TODAY. bROUGHT IN BY ems FOR EVALUATION. Source History Provided: Patient Mode of arrival Mode of Arrival: EMS Timing Onset of Chief Complaint: 07/02/20 Context History of: Arthritis and Hip Fracture Associated signs and symptoms Associated Signs and Symptoms: Pain (COCCYX, LEFT HIP) PMH PMH Past Medical History: Anemia, Dyslipidemia and Hypertension Past Surgical History: Yes Surgical History: Appendectomy, Hysterectomy and Other Family History Family Medical History: Cancer and Hypertension Social History Do you use any recreational Drugs:: No ROS Review of Systems Constitutional: No Symptoms Reported Eyes: No Symptoms Reported ENTM: No Symptoms Reported Respiratoy: No Symptoms Reported Cardiovascular: No Symptoms Reported Gastrointestinal/Abdominal: No Symptoms Reported Genitourinary: No Symptoms Reported Neurological: No Symptoms Reported Musculoskeletal: Left, Hip and Other (COCCYX) Integumentary: No Symptoms Reported Hematologic/Lymphatic: No Symptoms Reported Endocrine: No Symptoms Reported Psychiatric: No Symptoms Reported All Other Systems: Reviewed and Negative PE Vital Signs Vitals: Temperature 97.8 F Pulse Rate 73 Respiratory Rate 20 Blood Pressure [Right Arm] 103/49 Blood Pressure 136/63 O2 Sat by Pulse Oximetry 98 General Limitations: No Limitations General Appearance: Alert and In No Apparent Distress Head Head Exam: Normal Inspection, Atraumatic and Normocephalic Eyes Eye exam: Normal Appearance and EOMI ENT ENT Exam: Normal Exam and Normal Oropharynx Neck Neck Exam: Normal Inspection, Full ROM and Trachea Midline Chest Chest Inspection: Normal Inspection Respiratory Respiratory Exam: negative Respiratory Distress Cardiovascular Cardiovascular Exam: Regular Rate Abdominal Exam Abdominal Exam: Normal Inspection Extremities Extremities Exam: Normal Inspection, Full ROM and Tenderness (COCCYX) Upper Extremities Shoulder Exam: Normal Inspection and Full ROM Arm Exam: Normal Inspection and Full ROM Elbow Exam: Normal Inspection and Full ROM Forearm Exam: Normal Inspection Hand Exam: Normal Inspection Lower Extremities Hip/Pelvis Exam: Normal Inspection and Tenderness (LEFT HIP); negative Full ROM Upper Leg Exam: Normal Inspection Knee Exam: Normal Inspection Lower Leg Exam: Normal Inspection Ankle Exam: Normal Inspection COURSE Treatment Treatment: 2139: case discussed with DR. Kennedy admit for pain control and usp care, ROR Labs Reviewed Result Diagrams: 07/02/20 22:48 07/02/20 22:48 XRAY XRAY Interpreted by: Radiologist X-ray Results: CT pelvis: acute fx of left inferior and suoerior pubic ramus Opioid Opioid Risk Tool Age (Spike box if 16-45): No History of Preadolescent Sexual Abuse: No Total: 0 Total Score Risk Category: Low Risk Copyright: Adam COTA predicting aberrant behaviors Diagnosis Discharge Problem: Fracture, pelvis closed Qualifiers: Encounter type: initial encounter Pelvic bone location: pubis Sublocation of pubis: superior rim Laterality: left Qualified Code(s): S32.512A - Fracture of superior rim of left pubis, initial encounter for closed fracture Instructions Forms: Precautions for COVID19 Patient Portal Social Distancing
[2020-07-02] MEDS ORDERED: TORADOL 30 MG VIAL IM ONE (19:50)
[2020-07-02] MEDS ORDERED: TORADOL 30 MG VIAL ONE (20:00)
--- NOTE | 2020-07-02 20:14 | RAD ---
HISTORYPAIN TO TAILBONE HTN, APPENDECTOMYSTUDYPELVISCOMPARISONNoneFINDINGSIs a metallic prosthesis in the right hip with the aceta bular and femoral portions of the prosthesis in good position. There is mild joint space narrowing in the left hip. The bones are osteopenic. There is a questionable ill-defined mildly displaced fractur es along the superior inferior pubic ramus on the leftIMPRESSIONDiffuse osteopenia limiting the exam with a questionable subacute or chronic mildly displaced superior and inferior pubic ramus fractures on the left. Suggest obtaining a dedicated left hip series, if indicated clinically.Right hip prosthe sis in good position.Electronically signed by: CHELSI CHAUDHARY (Jul 02, 2020 20:14:04)
--- NOTE | 2020-07-02 20:53 | CT ---
PELVIS W/O CONHISTORY: Possible pelvic fractureComparison:Same day radiographTechnique:Multiple axial images of the pelvis were obtained.. Dose reduction techniques including Automated Exposure Control (AEC) and adjustment of mA and kV were utlized.Findings:Acute fracture of the left inferior pubic ramus and left superior pubic ramus uterus not well seen. Right hip replacement. Bladder within normal limits. Severe diverticulosis without focal inflammation. No free fluid or abnormal pelvic lymph nodes.No aggressive osseous lesions.IMPRESSION:1. Acute fractures of the left inferior and superior pubic rami.Electronically signed by: TONEY RUSSELL (Jul 02, 2020 20:53:02)
[2020-07-02 22:54] LABS: BILIRUBIN,URINE NEGATIVE (NEGATIVE); BLOOD/HEMOGLOBIN,URINE 1+ (NEGATIVE); GLUCOSE, URINE NEGATIVE (NEGATIVE); KETONES,URINE NEGATIVE (NEGATIVE); LEUKOCYTE ESTERASE ,URINE NEGATIVE (NEGATIVE); NITRITES,URINE NEGATIVE (NEGATIVE); PH,URINE 6.5 (5.0 - 8.0); PROTEIN,URINE NEGATIVE (NEGATIVE); UROBILINOGEN,URINE NORMAL (NORMAL)
[2020-07-02 22:54] LABS: BASOPHILS # (AUTO) 0.1 X10^3/uL (0.0-0.1); BASOPHILS % (AUTO) 0.4 % (0.2-1.0); EOSINOPHILS % (AUTO) 0.2 % (0.9-2.9); HEMATOCRIT 29.2 % (36.0-47.0); HEMOGLOBIN 9.4 g/dL (12.0-16.0); LYMPHOCYTES % (AUTO) 7.4 % (21.0-51.0); MEAN CORPUSCULAR HEMOGLOBIN 27.5 pg (27.0-34.0); MEAN CORPUSCULAR HGB CONC 32.3 g/dL (33.0-35.0); MEAN CORPUSCULAR VOLUME 85.1 fL (80.0-100.0); MEAN PLATELET VOLUME 7.9 fL (7.4-11.0); MONOCYTES # (AUTO) 0.6 x10^3/uL (0.3-0.8); MONOCYTES % (AUTO) 4.4 % (0.0-13.0); NEUTROPHILS # (AUTO) 12.4 x10^3/uL (2.2-4.8); NEUTROPHILS % (AUTO) 87.6 % (42.0-75.0); PLATELET COUNT 172 X10^3/uL (150.0-450.0); RED BLOOD COUNT 3.43 X10^6/uL (3.5-5.4); RED CELL DISTRIBUTION WIDTH 19.5 % (11.6-16.5); WHITE BLOOD COUNT 14.2 X10^3/uL (3.6-10.0)
[2020-07-02 22:58] LABS: APPEARANCE,URINE CLEAR (CLEAR); COLOR,URINE YELLOW (YELLOW)
[2020-07-02 22:59] LABS: BACTERIA,URINE NEGATIVE /HPF (NEGATIVE); RBC,URINE 0-2 /HPF (0-3); SQUAMOUS EPITHELIAL CELL,UR NEGATIVE /HPF (NEGATIVE)
[2020-07-02 23:05] LABS: ALANINE AMINOTRANSFERASE 15 Units/L (12-78); ALBUMIN 3.5 g/dL (3.4-5.0); ALKALINE PHOSPHATASE 79 Units/L (46-116); ASPARTATE AMINO TRANSFERASE 15 Units/L (15-37); BLOOD UREA NITROGEN 11 mg/dL (7-18); CALCIUM 8.9 mg/dL (8.5-10.1); CARBON DIOXIDE 24.8 mmol/L (21-32); CHLORIDE 101 mmol/L (98-107); CREATININE 0.69 mg/dL (0.55-1.02); SODIUM 137 mmol/L (136-145); TOTAL PROTEIN 7.1 g/dL (6.4-8.2); eGFR NON BLACK RACES > 60 (>60)
[2020-07-02] MEDS ORDERED: DEMEROL INJ IVP PRN (23:40)
[2020-07-03 00:01] VITALS: BMI 20.8
[2020-07-03] MEDS ORDERED: NS 100 ML IV 100 ML with VENOFER 400 MG IV NR ×2 (08:31)
[2020-07-03] MEDS ORDERED: ZESTRIL TAB 20 MG ONE (10:41)
[2020-07-03] MEDS: PRAVACHOL PO SCH ×2 (10:46→20:54)
[2020-07-03] MEDS: TOPROL XL PO SCH (10:46)
[2020-07-03] MEDS: PROTONIX TAB 40 MG PO SCH ×2 (10:47→20:55)
[2020-07-03] MEDS: CYTOTEC PO SCH ×2 (10:47→20:54)
[2020-07-03] MEDS: LOVENOX INJ 30 MG SYR SC SCH (10:48)
[2020-07-03] MEDS: ZESTRIL TAB 20 MG PO SCH (11:12)
[2020-07-04] MEDS: NORCO 5/325 MG TAB PO PRN ×2 (01:50→13:18)
[2020-07-04 06:22] LABS: BASOPHILS # (AUTO) 0.1 X10^3/uL (0.0-0.1); BASOPHILS % (AUTO) 1.6 % (0.2-1.0); EOSINOPHILS # (AUTO) 0.1 x10^3/uL (0.0-0.2); EOSINOPHILS % (AUTO) 1.3 % (0.9-2.9); HEMATOCRIT 26.6 % (36.0-47.0); HEMOGLOBIN 8.8 g/dL (12.0-16.0); LYMPHOCYTES # (AUTO) 1.4 X10^3/uL (1.3-2.9); LYMPHOCYTES % (AUTO) 23.8 % (21.0-51.0); MEAN CORPUSCULAR HGB CONC 33.1 g/dL (33.0-35.0); MEAN CORPUSCULAR VOLUME 84.7 fL (80.0-100.0); MEAN PLATELET VOLUME 8.4 fL (7.4-11.0); MONOCYTES # (AUTO) 0.6 x10^3/uL (0.3-0.8); MONOCYTES % (AUTO) 9.3 % (0.0-13.0); NEUTROPHILS # (AUTO) 3.9 x10^3/uL (2.2-4.8); PLATELET COUNT 159 X10^3/uL (150.0-450.0); RED BLOOD COUNT 3.14 X10^6/uL (3.5-5.4); RED CELL DISTRIBUTION WIDTH 19.4 % (11.6-16.5); WHITE BLOOD COUNT 6.1 X10^3/uL (3.6-10.0)
[2020-07-04 06:36] LABS: ALANINE AMINOTRANSFERASE 13 Units/L (12-78); ALKALINE PHOSPHATASE 68 Units/L (46-116); ASPARTATE AMINO TRANSFERASE 23 Units/L (15-37); BLOOD UREA NITROGEN 9 mg/dL (7-18); CALCIUM 8.6 mg/dL (8.5-10.1); CARBON DIOXIDE 26.3 mmol/L (21-32); CHLORIDE 104 mmol/L (98-107); COR CA(FOR HYPOALB) 9.4 mg/dL (8.5-10.1); CREATININE 0.52 mg/dL (0.55-1.02); SODIUM 138 mmol/L (136-145); TOTAL PROTEIN 6.6 g/dL (6.4-8.2); eGFR NON BLACK RACES > 60 (>60)
[2020-07-04] MEDS ORDERED: NS 100 ML IV 100 ML with VENOFER 400 MG IV NR ×2 (08:07)
[2020-07-04] MEDS: ZESTRIL TAB 20 MG PO SCH (08:45)
[2020-07-04] MEDS: TOPROL XL PO SCH (08:46)
[2020-07-04] MEDS: PROTONIX TAB 40 MG PO SCH (08:47)
[2020-07-04] MEDS: CYTOTEC PO SCH (08:47)
[2020-07-04] MEDS: LOVENOX INJ 30 MG SYR SC SCH (08:48)
[2020-07-04 11:49] VITALS: BP 112/56
== END 2020-07-04 14:10 | disposition home health service (06) ==
LOC: ER 19:32 → MED/SURG 19:32
PROVIDERS: ADMIT Internal Medicine; ATTEND Obstetrics & Gynecology Obstetrics
DX: W18.39XA Other fall on same level, initial encounter; I10 Essential (primary) hypertension; D62 Acute posthemorrhagic anemia; R26.89 Other abnormalities of gait and mobility; E78.2 Mixed hyperlipidemia; K21.9 Gastro-esophageal reflux disease without esophagitis; S32.512A Fracture of superior rim of left pubis, initial encounter for closed fracture; Y92.098 Other place in other non-institutional residence as the place of occurrence of the external cause; B96.29 Other Escherichia coli [E. coli] as the cause of diseases classified elsewhere

== ENCOUNTER 2020-10-25 12:17 | Observation (INO) ==
[2020-10-25] MEDS ORDERED: NS 1000 ML 1,000 ML IV ONE (13:16)
[2020-10-25] MEDS ORDERED: NS 1000 ML 1,000 ML ONE ×2 (13:27→21:35)
[2020-10-25 13:41] LABS: BASOPHILS % (AUTO) 0.1 % (0.2-1.0); HEMATOCRIT 33.7 % (36.0-47.0); HEMOGLOBIN 11.4 g/dL (12.0-16.0); LYMPHOCYTES # (AUTO) 1.1 X10^3/uL (1.3-2.9); LYMPHOCYTES % (AUTO) 6.1 % (21.0-51.0); MEAN CORPUSCULAR HEMOGLOBIN 30.8 pg (27.0-34.0); MEAN CORPUSCULAR HGB CONC 33.8 g/dL (33.0-35.0); MEAN CORPUSCULAR VOLUME 91.2 fL (80.0-100.0); MEAN PLATELET VOLUME 6.6 fL (7.4-11.0); MONOCYTES # (AUTO) 15.9 x10^3/uL (0.3-0.8); MONOCYTES % (AUTO) 89.8 % (0.0-13.0); NEUTROPHILS # (AUTO) 0.7 x10^3/uL (2.2-4.8); PLATELET COUNT 117 X10^3/uL (150.0-450.0); RED BLOOD COUNT 3.69 X10^6/uL (3.5-5.4); RED CELL DISTRIBUTION WIDTH 20.1 % (11.6-16.5); WHITE BLOOD COUNT 17.8 X10^3/uL (3.6-10.0)
[2020-10-25 13:45] LABS: BLOOD UREA NITROGEN 11 mg/dL (7-18); CARBON DIOXIDE 25.4 mmol/L (21-32); CHLORIDE 94 mmol/L (98-107); SODIUM 133 mmol/L (136-145); eGFR NON BLACK RACES > 60 (>60)
[2020-10-25 13:50] LABS: ALANINE AMINOTRANSFERASE 11 Units/L (12-78); ALBUMIN 2.8 g/dL (3.4-5.0); ALKALINE PHOSPHATASE 75 Units/L (46-116); ASPARTATE AMINO TRANSFERASE 32 Units/L (15-37); TOTAL PROTEIN 6.8 g/dL (6.4-8.2)
--- NOTE | 2020-10-25 14:02 | RAD ---
HISTORYWEAKNESS, VOMITING, INCONTINENCE X 1 WEEK HYST, ORTHO, HTNSTUDYACUTE ABDOMEN SERIESCOMPARISONPortable chest February 29, 2020.FINDINGSThe trachea is midline. The cardiac silhouette is [unremarkable]. [The lungs are clear without focal mass or consolidation. There is no effusion or pneumothorax.] [The bony thorax is unremarkable]. The effusion that was present previously on in February of 2020 has resolved without residual. There are mild chronic residual lung changes in the upper lobes.Flat plate and upright evaluation of the abdomen demonstrates a [normal bowel gas pattern]. There is no pneumoperitoneum. No pathological soft tissue mass or calcification can be observed. The bony structures are grossly intact. 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 COPD and mild chronic lung changes in the upper lobes but [no acute cardiopulmonary disease.]2. [No evidence for acute abdominal pathology identified.]Electronically signed by: RAHEL CHAN (Oct 25, 2020 14:00:43)
--- NOTE | 2020-10-25 14:26 | DR.GENAD ---
HPI Time Seen Time Seen by Provider: 10/25/20 13:15 PCP Primary Care Physician: Jonathon HPI Comment HPI Comment: Brought in by family with complaint of altered mental status, decreased po intake and foul odor to urine x 1 week. patient denies any pain. Complaint/Symptoms Chief Complaint:: Patient arrived to ER with family reports of patient weak, having episodes of vomiting, urine "smells bad", incontinence x 1 week. COVID-19 Coronavirus risk:travel/contact w/high risk person: No Has patient experienced Coronavirus symptoms: No Source History Provided: Family Member Mode of Arrival Mode of Arrival: Wheelchair Timing Onset of Chief Complaint: 10/20/20 PMH PMH Past Medical History: Yes Past Medical History: Hypertension Past Surgical History: Yes Surgical History: Hysterectomy Past Surgical History Comment: Right foot Family History History of Family Medical Conditions: No Family Medical History: Cancer and Hypertension Social History Type of Tobacco Use: None Does any household member use tobacco: No Alcohol Use: None Do you use any recreational Drugs:: No Lives Where: Home Travel Risk Coronavirus risk:travel/contact w/high risk person: No Has patient experienced Coronavirus symptoms: No Infectious screening In the last 2 months have you had wt loss of >10#?: NO Have you had fever, night sweats or hemotysis?: No Have you traveled outside the country in the last 6 months?: No Isolation: Standard ROS Review of Systems Constitutional: See HPI PE Vital Signs Vitals: Temperature 97.0 F Pulse Rate 77 Respiratory Rate 20 Blood Pressure [Right Arm] 112/56 Blood Pressure 115/58 O2 Sat by Pulse Oximetry 94 General Limitations: No Limitations General Appearance: Alert and In No Apparent Distress Head Head Exam: Normal Inspection, Atraumatic and Normocephalic Eyes Eye exam: Normal Appearance and EOMI ENT ENT Exam: Normal Exam Neck Neck Exam: Normal Inspection and Trachea Midline Chest Chest Inspection: Normal Inspection and Symmetric Chest Wall Rise Respiratory Respiratory Exam: Normal Lung Sounds Bilat Respiratory Exam: Bilateral: Clear to Auscultation Cardiovascular Cardiovascular Exam: Regular Rate and +S3 Abdominal Exam Abdominal Exam: Normal Inspection, Normal Bowel Sounds and Soft COURSE Treatment Treatment: Uneventful course in ED. Consultation Consultation Comments: Spoke with Dr. Kennedy who accepts patient for admission ROR Labs Reviewed Result Diagrams: 10/25/20 13:25 10/25/20 13:25 Laboratory: WBC 17.8 X10^3/uL (3.6-10.0) H 10/25/20 13:25 RBC 3.69 X10^6/uL (3.5-5.4) 10/25/20 13:25 Hgb 11.4 g/dL (12.0-16.0) L 10/25/20 13:25 Hct 33.7 % (36.0-47.0) L 10/25/20 13:25 MCV 91.2 fL (80.0-100.0) 10/25/20 13:25 MCH 30.8 pg (27.0-34.0) 10/25/20 13:25 MCHC 33.8 g/dL (33.0-35.0) 10/25/20 13:25 RDW 20.1 % (11.6-16.5) H 10/25/20 13:25 Plt Count 117 X10^3/uL (150.0-450.0) L 10/25/20 13:25 Plt Count Comment Cancelled 10/25/20 13:25 MPV 6.6 fL (7.4-11.0) L 10/25/20 13:25 Neut % (Auto) 4.0 % (42.0-75.0) L 10/25/20 13:25 Lymph % (Auto) 6.1 % (21.0-51.0) L 10/25/20 13:25 [place] % (Auto) 89.8 % (0.0-13.0) H 10/25/20 13:25 Eos % (Auto) 0.0 % (0.9-2.9) L 10/25/20 13:25 Baso % (Auto) 0.1 % (0.2-1.0) L 10/25/20 13:25 Neut # (Auto) 0.7 x10^3/uL (2.2-4.8) L 10/25/20 13:25 Lymph # (Auto) 1.1 X10^3/uL (1.3-2.9) L 10/25/20 13:25 [place] # (Auto) 15.9 x10^3/uL (0.3-0.8) H 10/25/20 13:25 Eos # (Auto) 0.0 x10^3/uL (0.0-0.2) 10/25/20 13:25 Baso # (Auto) 0.0 X10^3/uL (0.0-0.1) 10/25/20 13:25 Absolute Nucleated RBC 0.1 /100WBC 10/25/20 13:25 Total Counted Cancelled 10/25/20 13:25 Neutrophils % (Manual) Cancelled 10/25/20 13:25 Band Neutrophils % Cancelled 10/25/20 13:25 Lymphocytes % (Manual) Cancelled 10/25/20 13:25 Monocytes % (Manual) Cancelled 10/25/20 13:25 Eosinophils % (Manual) Cancelled 10/25/20 13:25 Basophils % (Manual) Cancelled 10/25/20 13:25 Metamyelocytes % Cancelled 10/25/20 13:25 Myelocytes % Cancelled 10/25/20 13:25 Promyelocytes % Cancelled 10/25/20 13:25 Nucleated RBCs Cancelled 10/25/20 13:25 Atypical Lymphocytes Cancelled 10/25/20 13:25 Blast Cells Cancelled 10/25/20 13:25 Smudge Cells Cancelled 10/25/20 13:25 Toxic Granulation Cancelled 10/25/20 13:25 Dohle Bodies Cancelled 10/25/20 13:25 Erica Rods Cancelled 10/25/20 13:25 Plt Clumps, EDTA Cancelled 10/25/20 13:25 Giant Platelets Cancelled 10/25/20 13:25 Plt Morphology Comment Cancelled 10/25/20 13:25 RBC Morphology Cancelled 10/25/20 13:25 Dimorphic RBCs Cancelled 10/25/20 13:25 Polychromasia Cancelled 10/25/20 13:25 Hypochromasia Cancelled 10/25/20 13:25 Poikilocytosis Cancelled 10/25/20 13:25 Basophilic Stippling Cancelled 10/25/20 13:25 Anisocytosis Cancelled 10/25/20 13:25 Microcytosis Cancelled 10/25/20 13:25 Macrocytosis Cancelled 10/25/20 13:25 Spherocytes Cancelled 10/25/20 13:25 Pappenheimer Bodies Cancelled 10/25/20 13:25 Sickle Cells Cancelled 10/25/20 13:25 Target Cells Cancelled 10/25/20 13:25 Tear Drop Cells Cancelled 10/25/20 13:25 Ovalocytes Cancelled 10/25/20 13:25 Stomatocytes Cancelled 10/25/20 13:25 Helmet Cells Cancelled 10/25/20 13:25 [place] Bodies Cancelled 10/25/20 13:25 Mar[place]hal Rings Cancelled 10/25/20 13:25 [place] Cells Cancelled 10/25/20 13:25 Crenated Cell Cancelled 10/25/20 13:25 Acanthocytes (Spur) Cancelled 10/25/20 13:25 Rouleaux Cancelled 10/25/20 13:25 Schistocytes Cancelled 10/25/20 13:25 Sodium 133 mmol/L (136-145) L 10/25/20 13:25 Corrected Sodium TNP 10/25/20 13:25 Potassium 3.0 mmol/L (3.5-5.1) L* 10/25/20 13:25 Chloride 94 mmol/L (98-107) L 10/25/20 13:25 Carbon Dioxide 25.4 mmol/L (21-32) 10/25/20 13:25 BUN 11 mg/dL (7-18) 10/25/20 13:25 Creatinine 0.60 mg/dL (0.55-1.02) 10/25/20 13:25 Est GFR (MDRD) Af Amer > 60 (>60) 10/25/20 13:25 Est GFR (MDRD) Non-Af > 60 (>60) 10/25/20 13:25 Glucose 91 mg/dL (65-99) 10/25/20 13:25 Calcium 9.0 mg/dL (8.5-10.1) 10/25/20 13:25 Corrected Calcium 10.0 mg/dL (8.5-10.1) 10/25/20 13:25 Total Bilirubin 0.90 mg/dL (0.2-1.0) 10/25/20 13:25 AST 32 Units/L (15-37) 10/25/20 13:25 ALT 11 Units/L (12-78) L 10/25/20 13:25 Alkaline Phosphatase 75 Units/L (46-116) 10/25/20 13:25 Total Protein 6.8 g/dL (6.4-8.2) 10/25/20 13:25 Albumin 2.8 g/dL (3.4-5.0) L 10/25/20 13:25 Globulin 4.0 g/dL (2.5-4.5) 10/25/20 13:25 Albumin/Globulin Ratio 0.7 Ratio (1.1-2.1) L 10/25/20 13:25 Specimen Type Catherized urine 10/25/20 14:12 Urine Color Dark yellow (YELLOW) 10/25/20 14:12 Urine Appearance Hazy (CLEAR) 10/25/20 14:12 Urine pH 6.0 (5.0 - 8.0) 10/25/20 14:12 Ur Specific [place] 1.015 (1.000-1.030) 10/25/20 14:12 Urine Protein 2+ (NEGATIVE) 10/25/20 14:12 Urine Glucose (UA) Negative (NEGATIVE) 10/25/20 14:12 Urine Ketones 4+ (NEGATIVE) 10/25/20 14:12 Urine Occult Blood 2+ (NEGATIVE) 10/25/20 14:12 Urine Nitrite Negative (NEGATIVE) 10/25/20 14:12 Urine Bilirubin 1+ (NEGATIVE) 10/25/20 14:12 Urine Urobilinogen 2+ (NORMAL) 10/25/20 14:12 Ur Leukocyte Esterase Negative (NEGATIVE) 10/25/20 14:12 Urine RBC 3-5 /HPF (0-3) A 10/25/20 14:12 Urine WBC 0-2 /HPF (0-5) 10/25/20 14:12 Ur Squamous Epith Cells Rare /HPF (NEGATIVE) 10/25/20 14:12 Urine Bacteria Negative /HPF (NEGATIVE) 10/25/20 14:12 Ur Culture Indicated? No/not indicated 10/25/20 14:12 Opioid Opioid Risk Tool Age (Spike box if 16-45): No History of Preadolescent Sexual Abuse: No Total: 0 Total Score Risk Category: Low Risk Copyright: Adam COTA predicting aberrant behaviors Diagnosis Discharge Problem: Altered mental status Qualifiers: Altered mental status type: unspecified Qualified Code(s): R41.82 - Altered mental status, unspecified Leukocytosis Qualifiers: Leukocytosis type: unspecified Qualified Code(s): D72.829 - Elevated white blood cell count, unspecified
[2020-10-25 14:47] LABS: BILIRUBIN,URINE 1+ (NEGATIVE); BLOOD/HEMOGLOBIN,URINE 2+ (NEGATIVE); GLUCOSE, URINE NEGATIVE (NEGATIVE); KETONES,URINE 4+ (NEGATIVE); LEUKOCYTE ESTERASE ,URINE NEGATIVE (NEGATIVE); NITRITES,URINE NEGATIVE (NEGATIVE); PROTEIN,URINE 2+ (NEGATIVE); UROBILINOGEN,URINE 2+ (NORMAL)
[2020-10-25 15:06] LABS: APPEARANCE,URINE HAZY (CLEAR); COLOR,URINE DARK YELLOW (YELLOW)
[2020-10-25 15:07] LABS: BACTERIA,URINE NEGATIVE /HPF (NEGATIVE); SQUAMOUS EPITHELIAL CELL,UR RARE /HPF (NEGATIVE)
[2020-10-25] MEDS ORDERED: VANCOMYCIN IV *PREMIX 1 G/200 ML BAG 1 G/200 ML PIGGYBACK IV ONE ×2 (16:07→16:15)
[2020-10-25] MEDS ORDERED: ZOSYN VIAL 4.5 GRAMS IV ONE (16:52)
[2020-10-25] MEDS ORDERED: NS 100 ML IV + SPIKE MINIBAG* 100 ML IV ONE (16:53)
[2020-10-25] MEDS: ZOSYN VIAL 4.5 GRAMS 4.5 G in NS 100 ML IV + SPIKE MINIBAG* 100 ML IV SCH ×2 (17:28→21:33)
[2020-10-25] MEDS ORDERED: PHARMACY CONSULT - VANCOMYCIN XX SCH ×2 (19:00)
[2020-10-25 19:42] LABS: MAGNESIUM 1.9 mg/dL (1.7-2.9); PHOSPHORUS 2.6 mg/dL (2.6-4.7)
[2020-10-25] MEDS: NS 1000 ML 1,000 ML IV SCH (21:34)
[2020-10-25] MEDS ORDERED: ZOSYN VIAL 4.5 GRAMS 4.5 G in NS 100 ML IV + SPIKE MINIBAG* 100 ML IV SCH (22:00)
[2020-10-25] MEDS ORDERED: KLOR-CON PO PRN (23:05)
[2020-10-25] MEDS ORDERED: K-DUR TAB 20 MEQ PO PRN (23:05)
[2020-10-25] MEDS ORDERED: MICRO K EXTEN CAP 10 MEQ PO PRN (23:05)
[2020-10-25] MEDS ORDERED: POTASSIUM CHL 60 MEQ/NS 0.45% 500 ML IV PRN (23:05)
[2020-10-25] MEDS ORDERED: POTASSIUM CHL 40 MEQ/NS 0.45% 500 ML IV PRN (23:05)
[2020-10-25] MEDS ORDERED: POTASSIUM CHLORIDE LIQ 20 MEQ UDC PO PRN (23:05)
[2020-10-26] MEDS: K-RIDER 10 MEQ/NS 100 ML 10 MEQ/100 ML BAG IV PRN ×5 (01:43→06:04)
[2020-10-26 01:46] LABS: LACTIC ACID 0.8 mmol/L (0.4-2.0)
[2020-10-26] MEDS: NS 1000 ML 1,000 ML IV SCH ×3 (02:57→20:21)
[2020-10-26] MEDS: ZOSYN VIAL 4.5 GRAMS 4.5 G in NS 100 ML IV + SPIKE MINIBAG* 100 ML IV SCH ×3 (05:06→22:20)
--- NOTE | 2020-10-26 05:53 | RAD ---
HISTORYAMS, sepsisSTUDYPortable AP chestCOMPARISONFebruary 2020FINDINGSNormal heart size and contour. There is slight apparent pulmonary hyperinflation with prominent interstitial pattern bilaterally. No segmental or lobar consolidation, hilar enlargement or pleural effusion.IMPRESSIONNo change; no acute findings. Nonspecific interstitial pulmonary prominence is likely related to chronic peribronchial thickening/COPD.Electronically signed by: CINDA LIZ (Oct 26, 2020 05:51:38)
[2020-10-26] MEDS: PRAVACHOL PO SCH ×2 (06:00→20:58)
[2020-10-26] MEDS: COLACE CAP 100 MG PO SCH ×3 (06:00→20:58)
[2020-10-26] MEDS ORDERED: ZESTRIL TAB 20 MG ONE (06:07)
[2020-10-26] MEDS: ZESTRIL TAB 20 MG PO SCH (06:08)
[2020-10-26] MEDS: PROTONIX TAB 40 MG PO SCH ×2 (06:08→20:58)
[2020-10-26 06:58] LABS: ALANINE AMINOTRANSFERASE 6 Units/L (12-78); ALBUMIN 2.4 g/dL (3.4-5.0); ALKALINE PHOSPHATASE 55 Units/L (46-116); ASPARTATE AMINO TRANSFERASE 30 Units/L (15-37); BLOOD UREA NITROGEN 8 mg/dL (7-18); CALCIUM 8.3 mg/dL (8.5-10.1); CHLORIDE 99 mmol/L (98-107); COR CA(FOR HYPOALB) 9.6 mg/dL (8.5-10.1); CREATININE 0.43 mg/dL (0.55-1.02); SODIUM 132 mmol/L (136-145); TOTAL PROTEIN 5.8 g/dL (6.4-8.2); eGFR NON BLACK RACES > 60 (>60)
[2020-10-26 07:02] LABS: BASOPHILS % (AUTO) 0 % (0.2-1.0); HEMATOCRIT 28.1 % (36.0-47.0); HEMOGLOBIN 9.6 g/dL (12.0-16.0); LYMPHOCYTES # (AUTO) 1.8 X10^3/uL (1.3-2.9); LYMPHOCYTES % (AUTO) 9.9 % (21.0-51.0); MEAN CORPUSCULAR HEMOGLOBIN 31.3 pg (27.0-34.0); MEAN CORPUSCULAR HGB CONC 34.1 g/dL (33.0-35.0); MEAN PLATELET VOLUME 7.2 fL (7.4-11.0); MONOCYTES % (AUTO) 87.5 % (0.0-13.0); NEUTROPHILS # (AUTO) 0.5 x10^3/uL (2.2-4.8); NEUTROPHILS % (AUTO) 2.6 % (42.0-75.0); PLATELET COUNT 119 X10^3/uL (150.0-450.0); RED BLOOD COUNT 3.06 X10^6/uL (3.5-5.4); RED CELL DISTRIBUTION WIDTH 20.2 % (11.6-16.5); WHITE BLOOD COUNT 18.3 X10^3/uL (3.6-10.0)
[2020-10-26 08:43] LABS: ANISOCYTOSIS 1+; PLATELET MORPHOLOGY COMMENT NORMAL (NORMAL)
[2020-10-26] MEDS: TOPROL XL PO SCH (08:55)
[2020-10-26] MEDS: VSL#3 PO SCH (08:55)
[2020-10-26] MEDS: VANCOMYCIN HCL 1 G in D5W 250 ML IV 250 ML IV SCH (08:55)
[2020-10-26] MEDS ORDERED: NS 100 ML IV 100 ML with VENOFER 400 MG IV ONE ×2 (09:40)
[2020-10-26 09:45] VITALS: BMI 18.6
[2020-10-27] MEDS: NS 1000 ML 1,000 ML IV SCH ×3 (02:15→18:26)
[2020-10-27] MEDS: ZOSYN VIAL 4.5 GRAMS 4.5 G in NS 100 ML IV + SPIKE MINIBAG* 100 ML IV SCH ×3 (05:13→21:08)
[2020-10-27 07:06] LABS: ALANINE AMINOTRANSFERASE < 6 Units/L (12-78); ALBUMIN 2.3 g/dL (3.4-5.0); ALKALINE PHOSPHATASE 53 Units/L (46-116); ASPARTATE AMINO TRANSFERASE 28 Units/L (15-37); BLOOD UREA NITROGEN 4 mg/dL (7-18); CALCIUM 8.2 mg/dL (8.5-10.1); CHLORIDE 98 mmol/L (98-107); COR CA(FOR HYPOALB) 9.6 mg/dL (8.5-10.1); CREATININE 0.39 mg/dL (0.55-1.02); SODIUM 130 mmol/L (136-145); TOTAL PROTEIN 5.8 g/dL (6.4-8.2); eGFR NON BLACK RACES > 60 (>60)
[2020-10-27 07:15] LABS: BASOPHILS % (AUTO) 0.1 % (0.2-1.0); EOSINOPHILS % (AUTO) 0.1 % (0.9-2.9); HEMOGLOBIN 9.8 g/dL (12.0-16.0); LYMPHOCYTES # (AUTO) 1.4 X10^3/uL (1.3-2.9); MEAN CORPUSCULAR HEMOGLOBIN 31.1 pg (27.0-34.0); MEAN CORPUSCULAR HGB CONC 33.8 g/dL (33.0-35.0); MEAN CORPUSCULAR VOLUME 92.1 fL (80.0-100.0); MONOCYTES # (AUTO) 17.2 x10^3/uL (0.3-0.8); MONOCYTES % (AUTO) 88.8 % (0.0-13.0); NEUTROPHILS # (AUTO) 0.8 x10^3/uL (2.2-4.8); PLATELET COUNT 115 X10^3/uL (150.0-450.0); RED BLOOD COUNT 3.15 X10^6/uL (3.5-5.4); RED CELL DISTRIBUTION WIDTH 19.8 % (11.6-16.5); WHITE BLOOD COUNT 19.4 X10^3/uL (3.6-10.0)
[2020-10-27] MEDS ORDERED: ZESTRIL TAB 20 MG ONE (08:07)
[2020-10-27] MEDS: PROTONIX TAB 40 MG PO SCH ×2 (08:19→20:25)
[2020-10-27] MEDS: TOPROL XL PO SCH (08:19)
[2020-10-27] MEDS: COLACE CAP 100 MG PO SCH ×2 (08:19→20:24)
[2020-10-27] MEDS: VSL#3 PO SCH (08:20)
[2020-10-27] MEDS: VANCOMYCIN HCL 1 G in D5W 250 ML IV 250 ML IV SCH (08:22)
[2020-10-27 08:28] LABS: ANISOCYTOSIS SLIGHT; PLATELET MORPHOLOGY COMMENT NORMAL (NORMAL)
[2020-10-27] MEDS ORDERED: DECADRON INJ IVP ONE (09:48)
[2020-10-27] MEDS ORDERED: ZOFRAN INJ 4 MG VIAL IVP PRN (09:48)
[2020-10-27] MEDS: ZESTRIL TAB 20 MG PO SCH (09:50)
[2020-10-27] MEDS: K-RIDER 10 MEQ/NS 100 ML 10 MEQ/100 ML BAG IV PRN ×4 (10:44→15:49)
[2020-10-27] MEDS ORDERED: DECADRON INJ ONE (10:52)
[2020-10-27] MEDS ORDERED: DECADRON INJ IVP NR (11:00)
[2020-10-27] MEDS: PRAVACHOL PO SCH (20:25)
[2020-10-28] MEDS: NS 1000 ML 1,000 ML IV SCH (03:12)
[2020-10-28] MEDS: ZOSYN VIAL 4.5 GRAMS 4.5 G in NS 100 ML IV + SPIKE MINIBAG* 100 ML IV SCH (05:02)
[2020-10-28 06:55] LABS: BASOPHILS % (AUTO) 0.1 % (0.2-1.0); HEMATOCRIT 24.3 % (36.0-47.0); HEMOGLOBIN 8.4 g/dL (12.0-16.0); LYMPHOCYTES # (AUTO) 1.1 X10^3/uL (1.3-2.9); LYMPHOCYTES % (AUTO) 9.7 % (21.0-51.0); MEAN CORPUSCULAR HEMOGLOBIN 31.5 pg (27.0-34.0); MEAN CORPUSCULAR HGB CONC 34.7 g/dL (33.0-35.0); MEAN CORPUSCULAR VOLUME 90.7 fL (80.0-100.0); MEAN PLATELET VOLUME 7.2 fL (7.4-11.0); MONOCYTES # (AUTO) 9.7 x10^3/uL (0.3-0.8); MONOCYTES % (AUTO) 87.3 % (0.0-13.0); NEUTROPHILS # (AUTO) 0.3 x10^3/uL (2.2-4.8); NEUTROPHILS % (AUTO) 2.9 % (42.0-75.0); PLATELET COUNT 98 X10^3/uL (150.0-450.0); RED BLOOD COUNT 2.68 X10^6/uL (3.5-5.4); RED CELL DISTRIBUTION WIDTH 20.1 % (11.6-16.5); WHITE BLOOD COUNT 11.1 X10^3/uL (3.6-10.0)
[2020-10-28 07:08] LABS: ALANINE AMINOTRANSFERASE 7 Units/L (12-78); ALKALINE PHOSPHATASE 48 Units/L (46-116); ASPARTATE AMINO TRANSFERASE 24 Units/L (15-37); BLOOD UREA NITROGEN 6 mg/dL (7-18); CALCIUM 8.1 mg/dL (8.5-10.1); CARBON DIOXIDE 24.4 mmol/L (21-32); CHLORIDE 104 mmol/L (98-107); COR CA(FOR HYPOALB) 9.7 mg/dL (8.5-10.1); CREATININE 0.39 mg/dL (0.55-1.02); SODIUM 137 mmol/L (136-145); TOTAL PROTEIN 5.1 g/dL (6.4-8.2); eGFR NON BLACK RACES > 60 (>60)
[2020-10-28 07:49] LABS: ANISOCYTOSIS 1+; PLATELET MORPHOLOGY COMMENT NORMAL (NORMAL)
[2020-10-28] MEDS ORDERED: ZESTRIL TAB 20 MG ONE (08:05)
[2020-10-28] MEDS: PROTONIX TAB 40 MG PO SCH (09:53)
[2020-10-28] MEDS: COLACE CAP 100 MG PO SCH (09:53)
[2020-10-28] MEDS: VSL#3 PO SCH (09:54)
[2020-10-28] MEDS: TOPROL XL PO SCH (10:11)
[2020-10-28] MEDS: ZESTRIL TAB 20 MG PO SCH (10:11)
[2020-10-28] MEDS: VANCOMYCIN HCL 1 G in D5W 250 ML IV 250 ML IV SCH (10:11)
[2020-10-28 14:39] VITALS: BP 111/56
[2020-10-29] MEDS ORDERED: PHARMACY COMMENT IV NR (08:30)
== END 2020-10-28 14:21 | disposition home or self-care (01) ==
LOC: ER 12:17 → OBS 12:17
PROVIDERS: ADMIT Internal Medicine; ATTEND Obstetrics & Gynecology Obstetrics
DX: R26.89 Other abnormalities of gait and mobility; Z20.822 Contact with and (suspected) exposure to COVID-19; D50.8 Other iron deficiency anemias; R11.2 Nausea with vomiting, unspecified; R41.82 Altered mental status, unspecified; K92.2 Gastrointestinal hemorrhage, unspecified; D68.9 Coagulation defect, unspecified; I10 Essential (primary) hypertension; Z87.898 Personal history of other specified conditions; Z87.11 Personal history of peptic ulcer disease; D72.829 Elevated white blood cell count, unspecified; C95.90 Leukemia, unspecified not having achieved remission; R94.31 Abnormal electrocardiogram [ECG] [EKG]